=== PATIENT | male | born 1925 | race Caucasian/White ===

== ENCOUNTER 2017-01-05 10:05 | Inpatient (IN) | payer MEDICARE ==
[~2017-01-05] VITALS: Ht 160 cm; Wt 73.2 kg
[~2017-01-05 10:05] MED LIST: ASPI81 PO; METO25 PO; OXYB5TAB33 PO; OYST500T77 PO; SIMV80TA OR; TAB-TAB PO; TERA10CA3 PO; TIMO0.5S6 OU
[2017-01-05 10:09] VITALS: PULSE 80; RESP 18; TEMP 98.8; O2SAT 88
--- NOTE | 2017-01-05 10:34 | RADRPT ---
EXAM DATE/TIME: 01/05/2017 10:15 [facility] COMPARISON: No previous studies available for comparison. INDICATIONS : Short of breath MEDICAL HISTORY : Congestive heart failure. Carcinoma, colon. SURGICAL HISTORY : CABG. Colon resection. ENCOUNTER: Initial ACUITY: 1 day PAIN SCORE: 0/10 LOCATION: Bilateral chest FINDINGS: There is hazy bilateral pleuroparenchymal opacity with central vascular congestion. The there has bee n previous sternotomy. CONCLUSION: CHF Db Melchor MD on January 05, 2017 at 10:31 Board Certified Radiologist. This report was verified electronically.
[2017-01-05 10:38] LABS: AUTOMATED NEUTROPHIL # 5.3 TH/MM3 (1.8-7.7); BASOPHIL # 0.1 TH/MM3 (0-0.2); BASOPHIL % 1.2 % (0.0-2.0); EOSINOPHIL # 0.4 TH/MM3 (0-0.4); EOSINOPHIL % 5.3 % (0.0-4.0); HEMATOCRIT 29.9 % (39.0-51.0); HEMO FLAGS DIFF FINAL; LYMPH % 11.5 % (9.0-44.0); LYMPHOCYTE # 0.9 TH/MM3 (1.0-4.8); MEAN CELL VOLUME 95.7 FL (80.0-100.0); MEAN CORPUSCULAR HEMOGLOBIN 31.1 PG (27.0-34.0); MEAN CORPUSCULAR HGB CONC 32.5 % (32.0-36.0); MONO % 15.9 % (0.0-8.0); NEUT % 66.1 % (16.0-70.0); PLATELET COUNT 140 TH/MM3 (150-450); RED BLOOD COUNT 3.12 MIL/MM3 (4.50-5.90); RED CELL DISTRIBUTION WIDTH 18.4 % (11.6-17.2)
--- NOTE | 2017-01-05 10:42 | PD ---
HPI Chief Complaint: Respiratory Distress Time Seen by Provider: 10:14 Travel History International Travel<30 days: No Contact w/Intl Traveler<30days: No Traveled to known affect area: No History of Present Illness HPI 89-year-old male who presents by ambulance with not acting himself. He is acutely short of breath but he states he is otherwise like that. He does have swelling in his legs and states that that is about what he runs. The ambulance team states that his had said that he recently had a blood transfusion. History mainly obtained by ambulance team and patient denies significant complaints. PFS Past Medical History Narrative Medical By records Arthritis: Yes Asthma: No Atrial Fibrillation: Yes Autoimmune Disease: No Blood Disorders: No Cancer: Yes (COLON, PROSTATE) Cardiovascular Problems: Yes (CABG) High Cholesterol: Yes Chemotherapy: Yes COPD: No Diabetes: No Endocrine: No Genitourinary: Yes ( PROSTATE CA) Hepatitis: No Hiatal Hernia: No Hypertension: Yes Immune Disorder: No Implanted Vascular Access Dvce: Yes Musculoskeletal: Yes Neurologic: No Psychiatric: No Reproductive: No Respiratory: No Thyroid Disease: No Past Surgical History Narrative Surgical By records Abdominal Surgery: Yes (COLON RESECTION) Cardiac Surgery: Yes (CABG) Ear Surgery: No Endocrine Surgery: No Eye Surgery: Yes (PADMINI. CATARACT EXTRACT.) Genitourinary Surgery: No Gynecologic Surgery: No Joint Replacement: Yes (RIGHT KNEE) Oral Surgery: No Pacemaker: No Thoracic Surgery: No Other Surgery: Yes Social History Narrative Social History By records Alcohol Use: Yes (RARELY) Tobacco Use: No Substance Use: No Allergies-Medications (Allergen,Severity, Reaction): Coded Allergies: No Known Allergies (Verified , 07/01/11) Reported Meds & Prescriptions Reported Meds & Active Scripts Active Review of Systems Except as stated in HPI: all other systems reviewed are Neg Physical Exam Narrative GENERAL: Well-nourished, well-developed patient. SKIN: Warm and dry. HEAD: Normocephalic and atraumatic. EYES: No injection or drainage. ENT: No nasal drainage noted. NECK: Supple, trachea midline. CARDIOVASCULAR: Regular rate and rhythm RESPIRATORY: Crackles bilaterally at bases. No accessory muscle use. GASTROINTESTINAL: Abdomen soft, non-tender, nondistended. EXTREMITIES: Significant pedal edema bilaterally, right greater than left, neurovascularly intact NEUROLOGICAL: Awake. Moves all extremities. Normal speech. Data Data Last Documented VS Vital Signs Date Time Temp Pulse Resp B/P Pulse Ox O2 Delivery O2 Flow Rate FiO2 01/05/17 10:15 70 22 88 Room Air 01/05/17 10:09 98.8 Orders Magnesium (Mg) (01/05/17 10:14) Phosphorus (Po4) (01/05/17 10:14) Complete Blood Count With Diff (01/05/17 10:14) Comprehensive Metabolic Panel (01/05/17 10:14) Ckmb (Isoenzyme) Profile (01/05/17 10:14) Troponin I (01/05/17 10:14) Urinalysis - C+S If Indicated (01/05/17 10:14) Act Partial Throm Time (Ptt) (01/05/17 10:14) Prothrombin Time / Inr (Pt) (01/05/17 10:14) B-Type Natriuretic Peptide (01/05/17 10:14) Chest, Single Ap (01/05/17 ) Electrocardiogram (01/05/17 ) Iv Access Insert/Monitor (01/05/17 10:14) Ecg Monitoring (01/05/17 10:14) Type And Screen (01/05/17 10:14) Us Leg Venous Doppler Bilat (01/05/17 ) Furosemide Inj (Lasix Inj) (01/05/17 11:30) Red Blood Cells (Rbc) (01/05/17 10:23) Admit Order (Ed Use Only) (01/05/17 12:41) Labs Laboratory Tests Test 01/05/17 10:23 White Blood Count 8.0 TH/MM3 Red Blood Count 3.12 MIL/MM3 Hemoglobin 9.7 GM/DL Hematocrit 29.9 % Mean Corpuscular Volume 95.7 FL Mean Corpuscular Hemoglobin 31.1 PG Mean Corpuscular Hemoglobin 32.5 % Concent Red Cell Distribution Width 18.4 % Platelet Count 140 TH/MM3 Mean Platelet Volume 8.1 FL Neutrophils (%) (Auto) 66.1 % Lymphocytes (%) (Auto) 11.5 % Monocytes (%) (Auto) 15.9 % Eosinophils (%) (Auto) 5.3 % Basophils (%) (Auto) 1.2 % Neutrophils # (Auto) 5.3 TH/MM3 Lymphocytes # (Auto) 0.9 TH/MM3 Monocytes # (Auto) 1.3 TH/MM3 Eosinophils # (Auto) 0.4 TH/MM3 Basophils # (Auto) 0.1 TH/MM3 CBC Comment DIFF FINAL Differential Comment Prothrombin Time 26.6 SEC Prothromb Time International 2.3 RATIO Ratio Activated Partial 32.7 SEC Thromboplast Time Sodium Level 140 MEQ/L Potassium Level 4.4 MEQ/L Chloride Level 102 MEQ/L Carbon Dioxide Level 31.1 MEQ/L Anion Gap 7 MEQ/L Blood Urea Nitrogen 18 MG/DL Creatinine 1.15 MG/DL Estimat Glomerular Filtration 60 ML/MIN Rate Random Glucose 93 MG/DL Calcium Level 9.3 MG/DL Phosphorus Level 2.8 MG/DL Magnesium Level 2.1 MG/DL Total Bilirubin 1.7 MG/DL Aspartate Amino Transf 53 U/L (AST/SGOT) Alanine Aminotransferase 26 U/L (ALT/SGPT) Alkaline Phosphatase 159 U/L Total Creatine Kinase 69 U/L Troponin I 0.03 NG/ML B-Type Natriuretic Peptide 648 PG/ML Total Protein 6.5 GM/DL Albumin 3.5 GM/DL Blood Type O NEGATIVE Antibody Screen POSITIVE Crossmatch Leukocyte-Reduced Red Blood Cells Blood Bank Comment MDM Medical Decision Making Medical Screen Exam Complete: Yes Emergency Medical Condition: Yes Medical Record Reviewed: Yes (past history confirmed) Interpretation(s) CBC & BMP Diagram 01/05/17 10:23 Last 24 hours Impressions Lower Extremity Ultrasound 01/05/17 0000 Signed Impressions: Service Date/Time: December 10:27 - CONCLUSION: Normal examination. Db Melchor MD Chest X-Ray 01/05/17 0000 Signed Impressions: Service Date/Time: December 10:15 - CONCLUSION: CHF Db Melchor MD Differential Diagnosis CHF, renal failure, anemia, UTI Narrative Course Will check blood work, chest x-ray, EKG and reevaluate ed workup with chf exacerbation, will admit to hospital as requiring oxygen, now at bedside and both agree to plan, given lasix iv times 1 Physician Communication Physician Communication dr kwon agrees to admit Diagnosis Primary Impression: CHF exacerbation Qualified Code: I50.9 - Acute on chronic congestive heart failure, unspecified congestive heart failure type Izzy Lopez MD January 05, 2017 10:42
[2017-01-05 10:48] LABS: INTERNATIONAL NORMALIZED RATIO 2.3 RATIO; PROTHROMBIN TIME - PATIENT 26.6 SEC (9.8-11.6)
[2017-01-05 11:01] LABS: ALKALINE PHOSPHATASE 159 U/L (45-117); ALT (GPT) 26 U/L (12-78); ANION GAP 7 MEQ/L (5-15); APTT (PATIENT) 32.7 SEC (24.3-30.1); AST (GOT) 53 U/L (15-37); BICARBONATE 31.1 MEQ/L (21.0-32.0); BLOOD UREA NITROGEN 18 MG/DL (7-18); CHLORIDE 102 MEQ/L (98-107); GLOMERULAR FILTRATION RATE 60 ML/MIN (>89); MAGNESIUM 2.1 MG/DL (1.5-2.5); SODIUM (NA) 140 MEQ/L (136-145); TOTAL BILIRUBIN ADULT 1.7 MG/DL (0.2-1.0)
[2017-01-05 11:06] LABS: CREATINE KINASE 69 U/L (39-308); POTASSIUM 4.4 MEQ/L (3.5-5.1)
--- NOTE | 2017-01-05 11:24 | RADRPT ---
EXAM DATE/TIME: 01/05/2017 10:27 [facility] COMPARISON: No previous studies available for comparison. INDICATIONS : Bilateral leg edema. MEDICAL HISTORY : Hypercholesterolemia. Carcinoma, prostate. Carcinoma, colon. HTN. Arthritis. SURGICAL HISTORY : CABG Bilateral cataract extraction with lens implants. Colon resection. Right carpel tunnel release. Bilateral total knee replacement. Chemotherapy. Blood transfusions. ENCOUNTER: Initial ACUITY: 1 week PAIN SCORE: 0/10 LOCATION: Bilateral leg. TECHNIQUE: Venous ultrasound of the left and right leg was performed from the inguinal ligament to the proximal calf. Real-time, color Doppler and spectral tracing, compression and augmentation techniques were us ed. FINDINGS: RIGHT LEG: There is normal compressibility of the deep venous system from the inguinal region to the proximal ca lf. No echogenic clot is seen in the lumen of the common femoral, femoral, popliteal, and posterior tibial veins. There is a normal response of the venous system to proximal and distal augmentation an d respiration. LEFT LEG: There is normal compressibility of the deep venous system from the inguinal region to the proximal ca lf. No echogenic clot is seen in the lumen of the common femoral, femoral, popliteal, and posterior tibial veins. There is a normal response of the venous system to proximal and distal augmentation an d respiration. CONCLUSION: Normal examination. Db Melchor MD on January 05, 2017 at 11:23 Board Certified Radiologist. This report was verified electronically.
[2017-01-05] MEDS ORDERED: FUROSEMIDE 20 MG/2 ML VIAL IV PUSH ONE (11:30)
[2017-01-05] MEDS ORDERED: NALOXONE HCL 0.4 MG/ML AMP IV PRN (13:00)
[2017-01-05] MEDS ORDERED: SODIUM CHLORIDE 0.9% FLUSH 10 ML FLUSH IV FLUSH PRN (13:00)
[2017-01-05] MEDS ORDERED: ONDANSETRON HCL 4 MG/2 ML VIAL IVP PRN (13:00)
[2017-01-05] MEDS ORDERED: MAGNESIUM HYDROXIDE SUSP 30 ML CUP PO PRN (13:00)
[2017-01-05] MEDS ORDERED: TERA10CA3 PO (14:07)
[2017-01-05] MEDS ORDERED: TIMO0.5S5 EACH EYE (14:07)
[2017-01-05] MEDS ORDERED: OXYB15TA PO (14:07)
[2017-01-05] MEDS ORDERED: ASPI81TA81 PO (14:07)
[2017-01-05] MEDS ORDERED: BICA50TA PO (14:07)
[2017-01-05] MEDS ORDERED: FLUT1SPR5 EACH NARE (14:07)
[2017-01-05] MEDS ORDERED: MULT1TAB46 PO (14:07)
[2017-01-05] MEDS ORDERED: CALC1TAB12 PO (14:07)
[2017-01-05] MEDS ORDERED: WARF-58 PO (14:07)
[2017-01-05] MEDS ORDERED: SIMV80TA PO (14:07)
[2017-01-05] MEDS ORDERED: OCEA0.653 EACH NARE (14:08)
[2017-01-05 15:10] VITALS: BP 120/66; PULSE 73; RESP 20; O2SAT 100
--- NOTE | 2017-01-05 15:45 | HHI.HP ---
HPI [facility] Hospitalists Primary Care Physician Janki Whitfield MD Admission Diagnosis chf exacerbation Chief Complaint: SOB, LE edema Travel History International Travel<30 Days: No Contact w/Intl Traveler <30 Da: No Traveled to Known Affected Are: No History of Present Illness Mr. Lopez is a pleasant 89 y/o WM with atrial fibrillation on chronic anticoagulation with Coumadin, chronic anemia, hx of prostate cancer and hx of large cell lymphoma in 2004. Pt was brought to the ED on 01/05/17 with worsening LE edema and reported SOB. Pt is somewhat of a poor historian and it is difficult to obtain information from him. Pts was reportedly concerned about his increasing LE edema. Pt had recently received a blood transfusion as his Hgb/Hct on 12/26/16 as an outpt was notably decreased to 7.9/25.3. Following the blood transfusion on 12/30 his H/H has increased to 9.4/29.4 which is about his baseline. He has had increased SOB and LE edema since his transfusion. Workup in the ED revealed BNP 648, pt was hypoxic on RA at 88% which improved with supplemental O2. CXR revealed findings consistent with CHF. LE US was negative for DVT. Pt was given Lasix 20mg IV in the ED. Review of Systems Constitutional: DENIES: Fever, Chills Respiratory: COMPLAINS OF: Shortness of breath, DENIES: Cough Cardiovascular: COMPLAINS OF: Lower Extremity Edema, DENIES: Chest pain Gastrointestinal: DENIES: Abdominal pain, Nausea, Vomiting Genitourinary: DENIES: Urgency, Hematuria Integumentary: DENIES: Rash Neurologic: DENIES: Headache Psychiatric: COMPLAINS OF: Confusion Past Family Social History Past Medical History A. 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 s/p 3 cycles of CHOP/Rituxan in 2D echo (10/20/14) - EF 55% - No evidence of diastolic dysfunction - LA mildly dilated - Trace aortic regurgitation - Mild mitral regurgitation Past Surgical History CABG x 3 Bilateral cataract surgery Right trigger finger release Right partial colectomy in 2004 Prostate surgery Bilateral total knee arthroplasty (right in 2007, left in 2008) Reported Medications [place] Nasal [place] (Sodium Chloride) 0.65% [place] 1-2 [place] EACH NARE DIRECTED PRN Multi Vitamin Daily (Multiple Vitamin) 1 Tab Tab 1 Tab PO DAILY Oxybutynin ER 24 HR (Oxybutynin Chloride) 15 Mg Tab 15 Mg PO BID Terazosin 10 Mg PO HS Calcium 500-400 Mg-Unit Tab 1 Tab PO BID Aspir-81 81 Mg PO DAILY Timoptic Opth Drops 0.5 % Soln 1 Drop EACH EYE DAILY Flonase Nasal [place] 50 Mcg/Act [place] 2 [place] EACH NARE HS PRN Simvastatin 80 Mg PO HS Bicalutamide 50 Mg PO DAILY Warfarin 3 Mg PO HS Allergies: Coded Allergies: No Known Allergies (Verified , 07/01/11) Family History Noncontributory Social History No reported alcohol, tobacco or illicit drug use Physical Exam Vital Signs Vital Signs Date Time Temp Pulse Resp B/P Pulse Ox O2 Delivery O2 Flow Rate FiO2 01/05/17 15:10 73 20 120/66 100 2 01/05/17 10:15 70 22 88 Room Air 01/05/17 10:09 98.8 80 18 88 Physical Exam GENERAL: This is a well-nourished, well-developed patient, in no apparent distress. HEENT: Atraumatic. Normocephalic. No temporal or scalp tenderness. No scleral icterus. Airway patent. NECK: Trachea midline, supple, nontender. CARDIO: Irregular. RESP: Crackles at the bases. ABD: +BS, soft, non-tender, nondistended. EXT: Bilateral LE pitting edema, 1-2+. NEURO: Awake and alert. Motor and sensory grossly within normal limits. Normal speech. Laboratory Laboratory Tests Test 01/05/17 10:23 White Blood Count 8.0 Red Blood Count 3.12 Hemoglobin 9.7 Hematocrit 29.9 Mean Corpuscular Volume 95.7 Mean Corpuscular Hemoglobin 31.1 Mean Corpuscular Hemoglobin 32.5 Concent Red Cell Distribution Width 18.4 Platelet Count 140 Mean Platelet Volume 8.1 Neutrophils (%) (Auto) 66.1 Lymphocytes (%) (Auto) 11.5 Monocytes (%) (Auto) 15.9 Eosinophils (%) (Auto) 5.3 Basophils (%) (Auto) 1.2 Neutrophils # (Auto) 5.3 Lymphocytes # (Auto) 0.9 Monocytes # (Auto) 1.3 Eosinophils # (Auto) 0.4 Basophils # (Auto) 0.1 CBC Comment DIFF FINAL Differential Comment Prothrombin Time 26.6 Prothromb Time International 2.3 Ratio Activated Partial 32.7 Thromboplast Time Sodium Level 140 Potassium Level 4.4 Chloride Level 102 Carbon Dioxide Level 31.1 Anion Gap 7 Blood Urea Nitrogen 18 Creatinine 1.15 Estimat Glomerular Filtration 60 Rate Random Glucose 93 Calcium Level 9.3 Phosphorus Level 2.8 Magnesium Level 2.1 Total Bilirubin 1.7 Aspartate Amino Transf 53 (AST/SGOT) Alanine Aminotransferase 26 (ALT/SGPT) Alkaline Phosphatase 159 Total Creatine Kinase 69 Troponin I 0.03 B-Type Natriuretic Peptide 648 Total Protein 6.5 Albumin 3.5 Blood Type O NEGATIVE Antibody Screen POSITIVE Crossmatch Leukocyte-Reduced Red Blood Cells Blood Bank Comment Result Diagram: 01/05/17 1023 01/05/17 1023 Imaging Last Impressions Lower Extremity Ultrasound 01/05/17 0000 Signed Impressions: Service Date/Time: December 10:27 - CONCLUSION: Normal examination. Db Melchor MD Chest X-Ray 01/05/17 0000 Signed Impressions: Service Date/Time: December 10:15 - CONCLUSION: CHF Db Melchor MD Septic Shock Reassessment Heart: Irregular Lungs: Crackles Skin: Warm Assessment and Plan Problem List: (1) CHF exacerbation Status: Acute Plan: - Pt admitted with complaints of worsening SOB and LE edema. - Pt had recently received a blood transfusion as his Hgb/Hct on 12/26/16 as an outpt was notably decreased to 7.9/25.3. - Following the blood transfusion on 12/30 his H/H has increased to 9.4/29.4 which is about his baseline. - He has had increased SOB and LE edema since his transfusion. - Workup in the ED revealed BNP 648, pt was hypoxic on RA at 88% which improved with supplemental O2. - CXR revealed findings consistent with CHF. - LE US was negative for DVT. - Pt was given Lasix 20mg IV in the ED. - We will continue with gentle diuresis with Lasix 20mg IV BID and KCL 20meq daily - Monitor labs closely - 2D echo - telemetry - Repeat CXR in AM - Supportive care - Monitor vitals closely (2) Atrial fibrillation Status: Chronic Plan: - Pt is not on any rate controlling medications at home. - Cont. ASA - Rate controlled on telemetry (3) Chronic anemia Status: Chronic Plan: - As above. - Labs are stable currently. - Monitor Assessment and Plan Patient examined. Assessment and plan formulated with Arabella Post PA-C. I agree with the above. Problem Qualifiers (1) CHF exacerbation: Qualified Code: I50.9 - Acute on chronic congestive heart failure, unspecified congestive heart failure type Arabella Post January 05, 2017 15:45 Angel Collins DO January 06, 2017 16:32
[2017-01-05 16:10] VITALS: BP 154/71; PULSE 86; RESP 22; TEMP 98.5; O2SAT 100
--- NOTE | 2017-01-05 16:33 | EKG ---
Date Performed: 01/05/2017 Time Performed: 10:20:04 PTAGE: 89 years EKG: ATRIAL FIBRILLATION LEFT BUNDLE BRANCH BLOCK ABNORMAL ECG PREVIOUS TRACING : 07/01/2011 08.57 Compared to the previous tracing, LBBB and Afib are new DOCTOR: Paul Craver Interpretating Date/Time 01/05/2017 16:32:46
[2017-01-05] MEDS ORDERED: WARFARIN SOD 3 MG TAB PO SCH (17:15)
[2017-01-05 17:26] LABS: BLOOD, URINE SMALL (NEG); COMMENT (UR) CULT NOT INDICATED; CULTURE IF INDICATED CULT NOT INDICATED; GLUCOSE,URINE NEG (NEG); KETONE, URINE NEG (NEG); MUCUS URINE FEW /lpf (OCC); NITRITE,URINE NEG (NEG); URINE COLOR YELLOW (YELLW/STRAW)
[2017-01-05] MEDS: POTASSIUM CHLORIDE 20 MEQ CONTROLLED RELEASE TAB PO SCH (18:10)
[2017-01-05] MEDS: FUROSEMIDE 20 MG/2 ML VIAL IV PUSH SCH (18:17)
[2017-01-05] MEDS: TIMOLOL MALEATE 0.5% OPHT SOLN 5 ML BTL EACH EYE SCH (18:20)
[2017-01-05 19:54] VITALS: BP 117/62; PULSE 68; RESP 20; TEMP 97.8; O2SAT 99
[2017-01-05 20:53] VITALS: O2SAT 94
[2017-01-05] MEDS: SODIUM CHLORIDE 0.9% FLUSH 10 ML FLUSH IV FLUSH SCH (20:56)
[2017-01-05] MEDS: PRAVASTATIN SOD 80 MG TAB PO SCH (20:56)
[2017-01-05] MEDS: TERAZOSIN HCL 5 MG CAP PO SCH (20:56)
[2017-01-05] MEDS: OXYBUTYNIN CHLORIDE 5 MG TAB PO SCH (20:56)
[2017-01-06] VITALS (10 sets, daily range): BP systolic 96–157; BP diastolic 54–86; PULSE 58–87; RESP 18–24; TEMP 97.8–98.9; O2SAT 93–100
[2017-01-06] MEDS: ASPIRIN EC 81 MG TABEC PO SCH (08:43)
[2017-01-06] MEDS: FUROSEMIDE 20 MG/2 ML VIAL IV PUSH SCH (08:43)
[2017-01-06] MEDS: SODIUM CHLORIDE 0.9% FLUSH 10 ML FLUSH IV FLUSH SCH ×2 (08:43→21:38)
[2017-01-06] MEDS: POTASSIUM CHLORIDE 20 MEQ CONTROLLED RELEASE TAB PO SCH (08:43)
[2017-01-06] MEDS: OXYBUTYNIN CHLORIDE 5 MG TAB PO SCH ×2 (08:44→21:38)
[2017-01-06] MEDS: TIMOLOL MALEATE 0.5% OPHT SOLN 5 ML BTL EACH EYE SCH (08:44)
--- NOTE | 2017-01-06 09:29 | RADRPT ---
EXAM DATE/TIME: 01/06/2017 09:03 [facility] COMPARISON: CHEST SINGLE AP, January 05, 2017, 10:15. INDICATIONS : Short of breath. Volume overload. MEDICAL HISTORY : Hypercholesterolemia. Carcinoma, prostate. Carcinoma, colon. HTN. Arthritis. SURGICAL HISTORY : CABG Bilateral cataract extraction with lens implants. Colon resection.Right carpel tunnel release. B ilateral total knee replacement. Chemotherapy. Blood transfusions. ENCOUNTER: Initial ACUITY: 2 days PAIN SCORE: 0/10 LOCATION: chest FINDINGS: PA and lateral views of the chest demonstrate a bilateral mostly basilar airspace consolidation with small effusions. Postoperative CABG. CONCLUSION: 1. Relatively stable appearance of bilateral basilar airspace disease and effusions. Findings most ch aracteristic of mild congestive heart failure. Carlos Benedict MD on January 06, 2017 at 9:26 Board Certified Radiologist. This report was verified electronically.
[2017-01-06 10:31] LABS: AUTOMATED NEUTROPHIL # 5.8 TH/MM3 (1.8-7.7); BASOPHIL # 0.1 TH/MM3 (0-0.2); BASOPHIL % 1.4 % (0.0-2.0); EOSINOPHIL # 0.4 TH/MM3 (0-0.4); EOSINOPHIL % 5.2 % (0.0-4.0); HEMATOCRIT 29.8 % (39.0-51.0); HEMO FLAGS DIFF FINAL; LYMPH % 8.5 % (9.0-44.0); LYMPHOCYTE # 0.7 TH/MM3 (1.0-4.8); MEAN CELL VOLUME 96.1 FL (80.0-100.0); MEAN CORPUSCULAR HEMOGLOBIN 31.2 PG (27.0-34.0); MEAN CORPUSCULAR HGB CONC 32.5 % (32.0-36.0); MONO % 14.9 % (0.0-8.0); PLATELET COUNT 148 TH/MM3 (150-450); RED CELL DISTRIBUTION WIDTH 17.9 % (11.6-17.2); WHITE BLOOD COUNT 8.3 TH/MM3 (4.0-11.0)
[2017-01-06 10:37] LABS: INTERNATIONAL NORMALIZED RATIO 3.2 RATIO; PROTHROMBIN TIME - PATIENT 36.8 SEC (9.8-11.6)
[2017-01-06 10:55] LABS: BICARBONATE 36.3 MEQ/L (21.0-32.0); POTASSIUM 3.8 MEQ/L (3.5-5.1)
--- NOTE | 2017-01-06 11:40 | EC ---
Study Study Date:01/06/2017 STUDY CONCLUSIONS SUMMARY - Procedure narrative: Transthoracic echocardiography. Image quality was fair. Scanning was performed from the parasternal, apical, and subcostal acoustic windows. - Left ventricle: The cavity size was normal. Wall thickness was normal. Systolic function was low normal. The estimated ejection fraction was 50%. Possible moderate basal inferior and basal posterior hypokinesis. - Aortic valve: Trileaflet; mildly thickened leaflets. Trace regurgitation. - Mitral valve: Moderately calcified annulus. Moderate regurgitation. - Left atrium: The atrium was mildly dilated. - Right atrium: The atrium was mildly dilated. - Tricuspid valve: Mild-moderate regurgitation. If LV function is below 40, please consider prescribing an ACEI or ARB or document rationale for non-use. PROCEDURE DATA STUDY STATUS: Elective. Procedure: Transthoracic echocardiography. Image quality was fair. Scanning was performed from the parasternal, apical, and subcostal acoustic windows. Study completion: The patient tolerated the procedure well. Transthoracic echocardiography. M-mode, complete 2D, complete spectral Doppler, and color Doppler. Patient status: Inpatient. CARDIAC ANATOMY LEFT VENTRICLE: The cavity size was normal. Wall thickness was normal. Systolic function was low normal. The estimated ejection fraction was 50%. Possible moderate basal inferior and basal posterior hypokinesis. AORTIC VALVE: Trileaflet; mildly thickened leaflets. Doppler: Transvalvular velocity was within the normal range. There was no stenosis. Trace regurgitation. Peak gradient: 12mm Hg (S). AORTA: Aortic root: The aortic root was normal in size. MITRAL VALVE: Moderately calcified annulus. Doppler: Transvalvular velocity was within the normal range. There was no evidence for stenosis. Moderate regurgitation. Valve area by pressure half-time: 2.29cm^2. Mean gradient: 3mm Hg (D). Peak gradient: 10mm Hg (D). LEFT ATRIUM: The atrium was mildly dilated. RIGHT VENTRICLE: The cavity size was normal. Wall thickness was normal. PULMONIC VALVE: Doppler: Transvalvular velocity was within the normal range. There was no evidence for stenosis. No regurgitation. TRICUSPID VALVE: Structurally normal valve. Doppler: Transvalvular velocity was within the normal range. Mild-moderate regurgitation. PULMONARY ARTERY: The main pulmonary artery was normal-sized. Systolic pressure was within the normal range. RIGHT ATRIUM: The atrium was mildly dilated. PERICARDIUM: There was no pericardial effusion. SYSTEMIC VEINS: Inferior vena cava: The vessel was normal in size. BASIC MEASUREMENTS ADULT Normal Left ventricle LV internal dimension, ED, chordal level, 46.1 mm 43-52 PLAX LV internal dimension, ES, chordal level, *39.2 mm 23-38 PLAX Fractional shortening, chordal level, PLAX *15 % >29 LV posterior wall thickness, ED 6.89 mm IVS/LVPW ratio, ED *1.48 <1.3 Ventricular septum Septal thickness, ED 10.2 mm Aortic valve Leaflet separation 18 mm 15-26 Left atrium Anterior-posterior dimension 37 mm BASIC MEASUREMENTS ADULT Normal Aortic valve Leaflet separation 18 mm 15-26 Aorta Root diameter, ED 31 mm 20-37 DOPPLER MEASUREMENTS ADULT Normal Aortic valve Peak velocity, S 172 cm/s VTI, S 48.6 cm Peak gradient, S 12 mm Hg Mitral valve Peak E-wave velocity 78.5 cm/s Peak A-wave velocity 34.1 cm/s Mean velocity, D 75.3 cm/s Pressure half-time 96 ms Mean gradient, D 3 mm Hg Peak gradient, D 10 mm Hg Peak E/A ratio 2.3 Valve area, pressure half-time 2.29 cm^2 Maximal regurgitant velocity 536 cm/s Tricuspid valve Regurgitant peak velocity 354 cm/s Peak RV-RA gradient, S 50 mm Hg Maximal regurgitant velocity 354 cm/s LEGEND: Mean values are shown as u=mean value. Asterisk (*) beard values outside specified normal range. Prepared and signed by Reji العلي [id number]
--- NOTE | 2017-01-06 15:10 | HHI.PR ---
Subjective Remarks Pt still feeling SOB and is on 4L via NC Pts telemetry revealed bradycardia into the low 40's/high 30's last night and today Pt is not on any rate controlling medications. Objective Vitals Vital Signs Date Time Temp Pulse Resp B/P Pulse Ox O2 Delivery O2 Flow Rate FiO2 01/06/17 12:32 97.8 60 18 157/86 100 01/06/17 12:30 98.0 74 18 135/60 98 01/06/17 08:41 Nasal Cannula 4.00 01/06/17 08:31 98.9 73 20 127/56 01/06/17 08:00 67 01/06/17 04:09 98.1 62 18 96/54 98 01/06/17 00:14 98.0 77 18 117/59 94 01/05/17 20:53 94 Nasal Cannula 3.00 01/05/17 19:54 97.8 68 20 117/62 99 01/05/17 16:11 Nasal Cannula 2.00 01/05/17 16:10 98.5 86 22 154/71 100 01/05/17 15:10 73 20 120/66 100 2 01/05/17 01/05/17 01/06/17 15:00 23:00 07:00 Intake Total 300 ml Output Total 400 ml Balance -100 ml Intake Oral 300 ml Output Urine Total 400 ml # Voids 3 # Bowel Movements 0 Result Diagram: 01/06/17 1006 01/06/17 1006 Other Results Laboratory Tests Test 01/05/17 01/05/17 01/06/17 10:23 17:15 10:06 White Blood Count 8.0 TH/MM3 8.3 TH/MM3 Red Blood Count 3.12 MIL/MM3 3.10 MIL/MM3 Hemoglobin 9.7 GM/DL 9.7 GM/DL Hematocrit 29.9 % 29.8 % Mean Corpuscular Volume 95.7 FL 96.1 FL Mean Corpuscular Hemoglobin 31.1 PG 31.2 PG Mean Corpuscular Hemoglobin 32.5 % 32.5 % Concent Red Cell Distribution Width 18.4 % 17.9 % Platelet Count 140 TH/MM3 148 TH/MM3 Mean Platelet Volume 8.1 FL 8.1 FL Neutrophils (%) (Auto) 66.1 % 70.0 % Lymphocytes (%) (Auto) 11.5 % 8.5 % Monocytes (%) (Auto) 15.9 % 14.9 % Eosinophils (%) (Auto) 5.3 % 5.2 % Basophils (%) (Auto) 1.2 % 1.4 % Neutrophils # (Auto) 5.3 TH/MM3 5.8 TH/MM3 Lymphocytes # (Auto) 0.9 TH/MM3 0.7 TH/MM3 Monocytes # (Auto) 1.3 TH/MM3 1.2 TH/MM3 Eosinophils # (Auto) 0.4 TH/MM3 0.4 TH/MM3 Basophils # (Auto) 0.1 TH/MM3 0.1 TH/MM3 CBC Comment DIFF FINAL DIFF FINAL Differential Comment Prothrombin Time 26.6 SEC 36.8 SEC Prothromb Time International 2.3 RATIO 3.2 RATIO Ratio Activated Partial 32.7 SEC Thromboplast Time Sodium Level 140 MEQ/L 141 MEQ/L Potassium Level 4.4 MEQ/L 3.8 MEQ/L Chloride Level 102 MEQ/L 99 MEQ/L Carbon Dioxide Level 31.1 MEQ/L 36.3 MEQ/L Anion Gap 7 MEQ/L 6 MEQ/L Blood Urea Nitrogen 18 MG/DL 17 MG/DL Creatinine 1.15 MG/DL 1.16 MG/DL Estimat Glomerular Filtration 60 ML/MIN 59 ML/MIN Rate Random Glucose 93 MG/DL 93 MG/DL Calcium Level 9.3 MG/DL 9.3 MG/DL Phosphorus Level 2.8 MG/DL Magnesium Level 2.1 MG/DL Total Bilirubin 1.7 MG/DL Aspartate Amino Transf 53 U/L (AST/SGOT) Alanine Aminotransferase 26 U/L (ALT/SGPT) Alkaline Phosphatase 159 U/L Total Creatine Kinase 69 U/L Troponin I 0.03 NG/ML B-Type Natriuretic Peptide 648 PG/ML 612 PG/ML Total Protein 6.5 GM/DL Albumin 3.5 GM/DL Blood Type O NEGATIVE Antibody Screen POSITIVE Crossmatch Leukocyte-Reduced Red Blood Cells Blood Bank Comment Urine Color YELLOW Urine Turbidity CLEAR Urine pH 6.0 Urine Specific [place] 1.009 Urine Protein NEG mg/dL Urine Glucose (UA) NEG mg/dL Urine Ketones NEG mg/dL Urine Occult Blood SMALL Urine Nitrite NEG Urine Bilirubin NEG Urine Urobilinogen LESS THAN 2.0 MG/DL Urine Leukocyte Esterase NEG Urine RBC 7 /hpf Urine WBC 1 /hpf Urine Mucus FEW /lpf Microscopic Urinalysis Comment CULT NOT INDICATED Imaging Last Impressions Lower Extremity Ultrasound 01/05/17 0000 Signed Impressions: Service Date/Time: December 10:27 - CONCLUSION: Normal examination. Db Melchor MD Chest X-Ray 01/05/17 0000 Signed Impressions: Service Date/Time: December 10:15 - CONCLUSION: CHF Db Melchor MD Objective Remarks General: NAD, AAOx3 Chest: Decreased air movement and wheezing bilaterally Cardiac: Irregular Abd: +BS, soft ND/NT Ext: Bilateral LE pitting edema to the knees A/P Problem List: (1) CHF exacerbation Status: Acute Plan: - Pt admitted with complaints of worsening SOB and LE edema. - Pt had recently received a blood transfusion as his Hgb/Hct on 12/26/16 as an outpt was notably decreased to 7.9/25.3. - Following the blood transfusion on 12/30 his H/H has increased to 9.4/29.4 which is about his baseline. - He has had increased SOB and LE edema since his transfusion. - Workup in the ED revealed BNP 648, pt was hypoxic on RA at 88% which improved with supplemental O2. - CXR revealed findings consistent with CHF. - LE US was negative for DVT. - Pt was given Lasix 20mg IV in the ED. - He was continued on Lasix 20mg IV BID and KCL 20meq daily but will increase to Lasix 40mg IV BID this evening as pt still symptomatic and CXR on 01/06/17 is unchanged. - 2D echo (01/05) --> estimated EF 50%, possible moderate basal inferior and basal posterior hypokinesis, trace aortic regurgitation, moderate mitral regurgitation, LA mildly dilated , RA mildly dilated, mild- moderate tricuspid regurgitation. - Telemetry with A. vida with maico in the 40's during the day and nurse reports into the 30's when he's sleeping. Pt is not on any BB - Check TSH/free T4 - Repeat CXR in AM - Holter Monitor - Repeat labs in AM - Duonebs - Supportive care - Monitor vitals closely (2) Atrial fibrillation Status: Chronic Plan: - Pt is not on any rate controlling medications at home. - Cont. ASA - Hold Coumadin today as INR is 3.2 - Telemetry (3) Chronic anemia Status: Chronic Plan: - As above. - Labs are stable currently. - Monitor Assessment and Plan Patient examined. Assessment and plan formulated with Arabella Post PA-C. I agree with the above. Problem Qualifiers (1) CHF exacerbation: Qualified Code: I50.9 - Acute on chronic congestive heart failure, unspecified congestive heart failure type Arabella Post January 06, 2017 15:09 Angel Collins DO January 06, 2017 16:32
[2017-01-06] MEDS ORDERED: RESP: ALBUTEROL 2.5 MG/IPRATROPIUM 0.5 MG NEB (PRN) NEB (15:30)
[2017-01-06] MEDS: RESP: ALBUTEROL 2.5 MG/IPRATROPIUM 0.5 MG NEB (SCH) NEB (15:35)
[2017-01-06] MEDS: FUROSEMIDE 40 MG/4 ML VIAL IV PUSH SCH ×2 (15:39→17:41)
[2017-01-06 16:16] LABS: FREE T4 1.43 NG/DL (0.76-1.46)
[2017-01-06] MEDS: TERAZOSIN HCL 5 MG CAP PO SCH (21:38)
[2017-01-06] MEDS: PRAVASTATIN SOD 80 MG TAB PO SCH (21:38)
[2017-01-07] VITALS (10 sets, daily range): BP systolic 91–129; BP diastolic 50–95; PULSE 66–89; RESP 18–20; TEMP 97.3–98.5; O2SAT 91–99
[2017-01-07] MEDS: RESP: ALBUTEROL 2.5 MG/IPRATROPIUM 0.5 MG NEB (SCH) NEB ×4 (07:44→23:56)
[2017-01-07 08:30] LABS: AUTOMATED NEUTROPHIL # 5.4 TH/MM3 (1.8-7.7); BASOPHIL # 0.1 TH/MM3 (0-0.2); BASOPHIL % 0.9 % (0.0-2.0); EOSINOPHIL # 0.5 TH/MM3 (0-0.4); HEMATOCRIT 29.3 % (39.0-51.0); HEMO FLAGS DIFF FINAL; LYMPH % 11.8 % (9.0-44.0); MEAN CELL VOLUME 95.9 FL (80.0-100.0); MEAN CORPUSCULAR HEMOGLOBIN 31.5 PG (27.0-34.0); MEAN CORPUSCULAR HGB CONC 32.8 % (32.0-36.0); MONO % 16.2 % (0.0-8.0); NEUT % 65.1 % (16.0-70.0); PLATELET COUNT 146 TH/MM3 (150-450); RED BLOOD COUNT 3.05 MIL/MM3 (4.50-5.90); RED CELL DISTRIBUTION WIDTH 17.9 % (11.6-17.2); WHITE BLOOD COUNT 8.2 TH/MM3 (4.0-11.0)
[2017-01-07] MEDS: FUROSEMIDE 40 MG/4 ML VIAL IV PUSH SCH (08:31)
[2017-01-07] MEDS: POTASSIUM CHLORIDE 20 MEQ CONTROLLED RELEASE TAB PO SCH (08:31)
[2017-01-07] MEDS: ASPIRIN EC 81 MG TABEC PO SCH (08:32)
[2017-01-07] MEDS: SODIUM CHLORIDE 0.9% FLUSH 10 ML FLUSH IV FLUSH SCH ×2 (08:32→20:51)
[2017-01-07] MEDS: TIMOLOL MALEATE 0.5% OPHT SOLN 5 ML BTL EACH EYE SCH (08:32)
[2017-01-07] MEDS: OXYBUTYNIN CHLORIDE 5 MG TAB PO SCH ×2 (08:32→20:51)
[2017-01-07 08:36] LABS: INTERNATIONAL NORMALIZED RATIO 3.7 RATIO; PROTHROMBIN TIME - PATIENT 43.7 SEC (9.8-11.6)
[2017-01-07 09:00] LABS: BICARBONATE 37.6 MEQ/L (21.0-32.0); MAGNESIUM 2.1 MG/DL (1.5-2.5); POTASSIUM 3.3 MEQ/L (3.5-5.1)
--- NOTE | 2017-01-07 09:52 | RADRPT ---
EXAM DATE/TIME: 01/07/2017 09:23 [facility] COMPARISON: CHEST PA & LAT, January 06, 2017, 9:03. INDICATIONS : Short of Breath MEDICAL HISTORY : Hypercholesterolemia. Carcinoma, prostate. Carcinoma, colon. HTN. Arthritis SURGICAL HISTORY : CABG Bilateral cataract extraction with lens implants. Colon resection. Right carpel tunnel release. Bilateral total knee replacement. Chemotherapy. Blood transfusions. ENCOUNTER: Subsequent ACUITY: 2 days PAIN SCORE: 0/10 LOCATION: Bilateral chest FINDINGS: AP and lateral views of the chest demonstrate a normal-sized cardiac silhouette in this patient post median sternotomy and CABG. Lungs are underinflated and there are perihilar and lower lungs interstit ial opacities. The there are bilateral pleural effusions. No pneumothorax is visualized. CONCLUSION: Stable chest x-ray with small bilateral pleural effusions with interstitial and air space opacities i n the mid and lower lung zones bilaterally. Db Werner MD on January 07, 2017 at 9:49 Board Certified Radiologist. This report was verified electronically.
--- NOTE | 2017-01-07 17:12 | HHI.PR ---
Subjective Remarks No new complaints. Objective Vitals Vital Signs Date Time Temp Pulse Resp B/P Pulse Ox O2 Delivery O2 Flow Rate FiO2 01/07/17 16:06 98.3 89 18 108/58 96 01/07/17 16:00 Nasal Cannula 3.00 01/07/17 12:00 Nasal Cannula 3.00 01/07/17 12:00 98.3 78 20 129/95 93 01/07/17 08:29 98.4 78 19 123/59 91 01/07/17 08:10 Nasal Cannula 3.00 01/07/17 08:10 67 01/07/17 07:45 93 Nasal Cannula 3.00 01/07/17 04:00 Nasal Cannula 3.00 01/07/17 04:00 97.3 69 20 91/50 96 01/07/17 00:42 99 Nasal Cannula 3.00 01/07/17 00:00 Nasal Cannula 3.00 01/07/17 00:00 98.4 66 20 118/64 99 01/06/17 20:30 98.3 87 24 123/59 99 01/06/17 20:00 Nasal Cannula 3.00 01/06/17 20:00 58 01/06/17 18:15 98.5 70 22 145/64 93 01/06/17 01/06/17 01/07/17 15:00 23:00 07:00 Intake Total 240 ml 240 ml Output Total 400 ml Balance -400 ml 240 ml 240 ml Intake Oral 240 ml 240 ml Output Urine Total 400 ml # Voids 3 2 2 # Bowel Movements 0 0 0 Result Diagram: 01/07/17 0708 01/07/17 0708 Imaging Last Impressions Lower Extremity Ultrasound 01/05/17 0000 Signed Impressions: Service Date/Time: December 10:27 - CONCLUSION: Normal examination. Db Melchor MD Chest X-Ray 01/05/17 0000 Signed Impressions: Service Date/Time: December 10:15 - CONCLUSION: CHF Db Melchor MD Objective Remarks General: NAD, AAOx3 HEENT: oral mucous membranes somewhat dry Chest: improved air movement from admission Cardiac: Irregular Abd: +BS, soft ND/NT Ext: no c/c/e A/P Problem List: (1) CHF exacerbation Status: Acute Plan: - Pt admitted with complaints of worsening SOB and LE edema. - Pt had recently received a blood transfusion as his Hgb/Hct on 12/26/16 as an outpt was notably decreased to 7.9/25.3. - Following the blood transfusion on 12/30 his H/H has increased to 9.4/29.4 which is about his baseline. - He has had increased SOB and LE edema since his transfusion. - Workup in the ED revealed BNP 648, pt was hypoxic on RA at 88% which improved with supplemental O2. - CXR revealed findings consistent with CHF. - LE US was negative for DVT. - Pt was given Lasix 20mg IV in the ED, then 40mg IV BID - CXR (01/07/17) --> CHF - 2D echo (01/05) --> estimated EF 50%, possible moderate basal inferior and basal posterior hypokinesis, trace aortic regurgitation, moderate mitral regurgitation, LA mildly dilated , RA mildly dilated, mild- moderate tricuspid regurgitation. - Telemetry with A. vida with maico in the 40's during the day and nurse reports into the 30's when he's sleeping. Pt is not on any BB - Holter Monitor --> pending RE: bradycardia - clinically pt seems improved. Hesitant to diuresis pt too aggressively given advanced age - change lasix to 40mg daily - Repeat labs in AM - Duonebs - Supportive care - Monitor vitals closely - anticipate d/c to SNF in 1-2 days (2) Atrial fibrillation Status: Chronic Plan: - Pt is not on any rate controlling medications at home. - Cont. ASA - Hold Coumadin today as INR is 3.2 - Telemetry (3) Chronic anemia Status: Chronic Plan: - As above. - Labs are stable currently. - Monitor Problem Qualifiers (1) CHF exacerbation: Qualified Code: I50.9 - Acute on chronic congestive heart failure, unspecified congestive heart failure type Angel Collins DO January 07, 2017 17:12
[2017-01-07] MEDS ORDERED: FUROSEMIDE 40 MG/4 ML VIAL IV PUSH SCH (18:00)
[2017-01-07] MEDS ORDERED: FUROSEMIDE 40 MG TAB PO SCH (18:00)
[2017-01-07] MEDS: PRAVASTATIN SOD 80 MG TAB PO SCH (20:51)
[2017-01-07] MEDS: TERAZOSIN HCL 5 MG CAP PO SCH (20:51)
[2017-01-08] VITALS (10 sets, daily range): BP systolic 100–168; BP diastolic 52–69; PULSE 63–101; RESP 18–26; TEMP 98–99.8; O2SAT 92–100
--- NOTE | 2017-01-08 02:57 | HHI.PR ---
Addendum to Inpatient Note Addendum Reason: Additional Documentation Additional Information [facility] NOTE Patient is an 89 year old male with a history of chronic anticoagulation on coumadin, inpatient for CHF exacerbatin, known to Dr. Collins ([facility]), for whom a [facility] is called due to worsened mentation and hypoxia to 80s%. At bedside, patient is notably confused and agitated, moving around and not answering questions. Cardiac exam showing tachycardia, no murmurs Lung exam: clear to auscultation, on simple mask 100% at 7L Abdomen: large ventral hernia Extremities: pulses 2+, no edema noted Assessment: I spoke with Dr. Collins who knows the patient. He has requested that patient receive a one-time bolus of cardizem 10mg IV x 1, continue telemetry. He would like cardizem gtt initiated for sustained atrial tachycardia. These items have been ordered. Plan: as above, in addition to ABG, EKG ordered per [facility] team, to be followed up by primary team Ericka Roberts MD R1 January 08, 2017 02:57
[2017-01-08] MEDS ORDERED: DILTIAZEM HCL 25 MG/5 ML VIAL IV ONE (03:00)
[2017-01-08 03:02] LABS: BLOOD GAS CARBOXYHEMOGLOBIN 2.4 % (0-4); BLOOD GAS HCO3 34 mmol/L (22-26); BLOOD GAS METHEMOGLOBIN 0.7 % (0-2); BLOOD GAS O2 HGB SATURATION 96 % (90-100); BLOOD GAS OXYGEN CONTENT 13.9 Vol % (12.0-20.0); BLOOD GAS PCO2 43 mmHg (38-42); BLOOD GAS PO2 122 mmHg (61-120); BLOOD GAS TOTAL HGB 10.1 G/DL (12.0-16.0); TEMP CORR TO 98.6
[2017-01-08 03:05] LABS: CRITICAL VALUE YES; DRAW SITE LT RADIAL; LITER FLOW 7 L/M; NUMBER OF ARTERIAL PUNCTURES 1; OXYGEN DEVICE SIMPLE MASK; STAT YES; ULNAR PULSE PRESENT
[2017-01-08] MEDS: ACETAMINOPHEN 325 MG TAB PO PRN (03:11)
[2017-01-08] MEDS ORDERED: DILTIAZEM INJ 125 MG in SODIUM CHLORIDE 0.9% INJ 100 ML IV PRN (03:15)
[2017-01-08 07:37] LABS: BICARBONATE 37.6 MEQ/L (21.0-32.0); MAGNESIUM 2.1 MG/DL (1.5-2.5); POTASSIUM 3.4 MEQ/L (3.5-5.1)
[2017-01-08] MEDS: OXYBUTYNIN CHLORIDE 5 MG TAB PO SCH ×2 (08:28→20:56)
[2017-01-08] MEDS: ASPIRIN EC 81 MG TABEC PO SCH (08:29)
[2017-01-08] MEDS: POTASSIUM CHLORIDE 20 MEQ CONTROLLED RELEASE TAB PO SCH (08:29)
[2017-01-08] MEDS: FUROSEMIDE 40 MG TAB PO SCH (08:30)
[2017-01-08] MEDS: SODIUM CHLORIDE 0.9% FLUSH 10 ML FLUSH IV FLUSH SCH ×2 (08:31→20:56)
[2017-01-08] MEDS: TIMOLOL MALEATE 0.5% OPHT SOLN 5 ML BTL EACH EYE SCH (08:34)
[2017-01-08] MEDS: RESP: ALBUTEROL 2.5 MG/IPRATROPIUM 0.5 MG NEB (SCH) NEB ×2 (08:38→17:08)
--- NOTE | 2017-01-08 14:46 | EKG ---
Date Performed: 01/08/2017 Time Performed: 02:51:24 PTAGE: 89 years EKG: Atrial fibrillation with rapid ventricular response. Left bundle branch block Abnormal ECG PREVIOUS TRACING : 01/08/2017 02.49 Since previous tracing, no significant change noted DOCTOR: Bradley Miller Interpretating Date/Time 01/08/2017 14:45:33
--- NOTE | 2017-01-08 14:46 | EKG ---
Date Performed: 01/08/2017 Time Performed: 02:49:52 PTAGE: 89 years EKG: Technically poor tracing with marked baseline wandering, making interpretation of the limb leads very difficult Left bundle branch block Atrial fibrillation with rapid ventricular response Com pared to previous tracing, heart rate is faster Abnormal ECG PREVIOUS TRACING 01/05/2017 10.20.04 DOCTOR: Bradley Miller Interpretating Date/Time 01/08/2017 14:45:05
[2017-01-08] MEDS ORDERED: DIGOXIN 0.5 MG/2 ML VIAL IV PUSH ONE (18:15)
--- NOTE | 2017-01-08 18:24 | HHI.PR ---
Subjective Remarks Pt slept most of the day. No c/o chest pain or palpitations. Pt developed Afib with RVR. RVR resolved after receiving carizem 10mg IV Pt's BP readings are in the low 100s. Will start IV digoxin Objective Vitals Vital Signs Date Time Temp Pulse Resp B/P Pulse Ox O2 Delivery O2 Flow Rate FiO2 01/08/17 16:14 99.8 84 19 100/57 100 01/08/17 12:06 98.5 89 18 106/57 95 01/08/17 08:40 97 Nasal Cannula 2.00 01/08/17 08:27 98.8 81 18 103/52 96 01/08/17 08:10 Nasal Cannula 2.00 01/08/17 04:00 98.0 101 22 101/55 92 01/08/17 02:45 95 2.00 01/08/17 00:00 98.6 89 20 131/63 92 01/07/17 23:58 91 Nasal Cannula 2.00 01/07/17 20:00 98.5 82 20 107/59 92 01/07/17 20:00 87 01/07/17 20:00 Nasal Cannula 3.00 01/07/17 01/07/17 01/08/17 15:00 23:00 07:00 Intake Total 600 ml 200 ml 220 ml Output Total 300 ml 400 ml Balance 600 ml -100 ml -180 ml Intake Oral 600 ml 200 ml 220 ml Output Urine Total 300 ml 400 ml # Voids 1 # Bowel Movements 0 0 0 Result Diagram: 01/07/17 0708 01/08/17 0604 Imaging Last Impressions Lower Extremity Ultrasound 01/05/17 0000 Signed Impressions: Service Date/Time: December 10:27 - CONCLUSION: Normal examination. Db Melchor MD Chest X-Ray 01/05/17 0000 Signed Impressions: Service Date/Time: December 10:15 - CONCLUSION: CHF Db Melchor MD Objective Remarks General: NAD, AAOx3 HEENT: oral mucous membranes somewhat dry Chest: improved air movement from admission Cardiac: Irregular Abd: +BS, soft ND/NT Ext: no c/c/e A/P Problem List: (1) CHF exacerbation Status: Acute Plan: - Pt admitted with complaints of worsening SOB and LE edema. - Pt had recently received a blood transfusion as his Hgb/Hct on 12/26/16 as an outpt was notably decreased to 7.9/25.3. - Following the blood transfusion on 12/30 his H/H has increased to 9.4/29.4 which is about his baseline. - He has had increased SOB and LE edema since his transfusion. - Workup in the ED revealed BNP 648, pt was hypoxic on RA at 88% which improved with supplemental O2. - CXR revealed findings consistent with CHF. - LE US was negative for DVT. - Pt was given Lasix 20mg IV in the ED, then 40mg IV BID - CXR (01/07/17) --> CHF - 2D echo (01/05) --> estimated EF 50%, possible moderate basal inferior and basal posterior hypokinesis, trace aortic regurgitation, moderate mitral regurgitation, LA mildly dilated , RA mildly dilated, mild- moderate tricuspid regurgitation. - Telemetry with A. vida with maico in the 40's during the day and nurse reports into the 30's when he's sleeping. Pt is not on any BB - Holter Monitor --> pending RE: bradycardia - clinically pt seems improved. Hesitant to diuresis pt too aggressively given advanced age - change lasix to 40mg daily - cxr (01/08/17) --> CHF, BNP elevated at 993 - repeat BNP in AM, if continues to increase may need to change lasix back to IV - Duonebs - Supportive care - Monitor vitals closely (2) Atrial fibrillation Status: Chronic Plan: - Pt developed RVR last night which became rate controlled following a single dose of IV cardizem 10mg - Cont. ASA - Hold Coumadin today as INR is 3.2 (01/07/17), 3.7 (01/08/17) --> continue to hold coumadin, repeat INR in AM - start IV digoxin - obtain digoxin level in AM - await holter - Telemetry (3) Chronic anemia Status: Chronic Plan: - As above. - Labs are stable currently. - Monitor Problem Qualifiers (1) CHF exacerbation: Qualified Code: I50.9 - Acute on chronic congestive heart failure, unspecified congestive heart failure type Angel Collins DO January 08, 2017 18:24
[2017-01-08] MEDS: TERAZOSIN HCL 5 MG CAP PO SCH (20:56)
[2017-01-08] MEDS: PRAVASTATIN SOD 80 MG TAB PO SCH (20:56)
[2017-01-09] VITALS (11 sets, daily range): BP systolic 93–123; BP diastolic 54–58; PULSE 77–89; RESP 18–24; TEMP 99.4–102.9; O2SAT 88–99
[2017-01-09] MEDS: RESP: ALBUTEROL 2.5 MG/IPRATROPIUM 0.5 MG NEB (SCH) NEB ×4 (00:16→20:51)
[2017-01-09] MEDS ORDERED: DIGOXIN 0.5 MG/2 ML VIAL IV PUSH ONE (02:00)
[2017-01-09] MEDS: ACETAMINOPHEN 325 MG TAB PO PRN ×2 (02:46→13:16)
--- NOTE | 2017-01-09 08:26 | HM ---
Date Performed: 01/07/2017 Time Performed: 12:49:00 HOOKUP DATE: 01/07/17 12:49:00 PM Sat ANALYSIS START TIME: 01/07/2017 12:54:00 PM ANALYSIS END TIME: 01/08/2017 6:50:42 AM PATIENT AGE: 89 PATIENT HEIGHT PATIENT WEIGHT DRUG LIST PATIENT DIAGNOSIS: CHF EXACERBATION TEST NARRATIVE: The patient's average heart rate was 95 BPM. Heart rates greater than 120 B PM were noted 18% of the time. No episodes of bradycardia were noted. No pauses exceeding 2.0 se conds were noted. 161 ventricular ectopics, which represented < 1% of the total beat count, were noted. The highest ventricular ectopic frequency occurred from 11:00 PM to 12:00 AM Sun. During thi s time 24 VE(s) occurred. Ventricular ectopics were observed as 159 isolated beat(s) and as 1 couple t(s). No runs were noted. No supraventricular ectopics were noted. Multiple episodes of ST d epression (defined as -1.0 mm or more) were noted in channel 1. The maximum depression of -3.3 mm o ccurred at 11:24:22 PM Sat. Multiple episodes of ST depression (defined as -1.0 mm or more) were no ailyn in channel 2. The maximum depression of -3.3 mm occurred at 01:04:52 AM Sun. Multiple episodes of ST depression (defined as -1.0 mm or more) were noted in channel 3. The maximum depression of -2 .5 mm occurred at 11:46:50 PM Sat. PATIENT REMOVED LEADS SEVERAL TIMES, POOR QUALITY TRACING TEST INTERPRETATION: No diary is included. Apparently the tracing has a lot of artifact as the patient removed the leads numerous times. The underlying rhythm is atrial fibrillation with bundle b ranch block. Average heart rate is 95 bpm with a range of 50-185 bpm. No significant pauses are pre sent. Rare PVCs versus aberrantly conducted beats are seen. Signed by : Wero Silva
[2017-01-09 08:37] LABS: HEMATOCRIT 30.5 % (39.0-51.0); MEAN CELL VOLUME 94.5 FL (80.0-100.0); MEAN CORPUSCULAR HEMOGLOBIN 31.9 PG (27.0-34.0); MEAN CORPUSCULAR HGB CONC 33.7 % (32.0-36.0); PLATELET COUNT 140 TH/MM3 (150-450); RED BLOOD COUNT 3.22 MIL/MM3 (4.50-5.90); RED CELL DISTRIBUTION WIDTH 18.1 % (11.6-17.2); WHITE BLOOD COUNT 7.4 TH/MM3 (4.0-11.0)
[2017-01-09 08:45] LABS: HEMO FLAGS AUTO DIFF
[2017-01-09] MEDS: POTASSIUM CHLORIDE 20 MEQ CONTROLLED RELEASE TAB PO SCH (08:45)
[2017-01-09] MEDS: ASPIRIN EC 81 MG TABEC PO SCH (08:45)
[2017-01-09] MEDS: FUROSEMIDE 40 MG TAB PO SCH (08:46)
[2017-01-09] MEDS: OXYBUTYNIN CHLORIDE 5 MG TAB PO SCH ×2 (08:46→21:49)
[2017-01-09 08:49] LABS: INTERNATIONAL NORMALIZED RATIO 3.5 RATIO; PROTHROMBIN TIME - PATIENT 41.4 SEC (9.8-11.6)
[2017-01-09] MEDS: TIMOLOL MALEATE 0.5% OPHT SOLN 5 ML BTL EACH EYE SCH (08:58)
[2017-01-09] MEDS: SODIUM CHLORIDE 0.9% FLUSH 10 ML FLUSH IV FLUSH SCH ×2 (09:02→21:50)
[2017-01-09 09:16] LABS: BICARBONATE 40.5 MEQ/L (21.0-32.0); DIGOXIN 1.8 NG/ML (0.8-2.0); POTASSIUM 3.7 MEQ/L (3.5-5.1)
[2017-01-09 09:57] LABS: ACANTHOCYTES OCC (NORMAL); BANDS 18 % (0-6); NEUTROPHIL # MANUAL DIFF 5.6 TH/MM3 (1.8-7.7); PLATELET ESTIMATE SMEAR LOW (NORMAL); PLATELET MORPHOLOGY NORMAL (NORMAL); POLYS (SEG NEUTROPHILS) 57 % (16-70); SCAN/DIFF FINAL DIFF MANUAL; WBC DIFF SAMPLE 100
--- NOTE | 2017-01-09 10:04 | HHI.PR ---
Subjective Remarks pt had fever overnight. currently no complaints Objective Vitals heart reg lung scattered wheeze abd distended. bs. nt ext no edema Vital Signs Date Time Temp Pulse Resp B/P Pulse Ox O2 Delivery O2 Flow Rate FiO2 01/09/17 08:14 97 Nasal Cannula 2.00 01/09/17 06:26 99.5 01/09/17 03:00 102.9 84 24 123/58 98 01/09/17 00:17 94 Nasal Cannula 2.00 01/08/17 23:30 98.9 85 26 168/69 97 01/08/17 20:35 98.2 72 22 110/57 96 01/08/17 20:00 Nasal Cannula 2.00 01/08/17 20:00 63 01/08/17 16:14 99.8 84 19 100/57 100 01/08/17 12:06 98.5 89 18 106/57 95 01/08/17 01/08/17 01/09/17 15:00 23:00 07:00 Intake Total 480 ml 200 ml 120 ml Output Total 250 ml Balance 480 ml -50 ml 120 ml Intake Oral 480 ml 200 ml 120 ml Output Urine Total 250 ml # Voids 2 3 # Bowel Movements 0 1 Result Diagram: 01/09/17 0811 01/09/17 0811 Imaging Last Impressions Lower Extremity Ultrasound 01/05/17 0000 Signed Impressions: Service Date/Time: December 10:27 - CONCLUSION: Normal examination. Db Melchor MD Chest X-Ray 01/05/17 0000 Signed Impressions: Service Date/Time: December 10:15 - CONCLUSION: CHF Db Melchor MD A/P Problem List: (1) CHF exacerbation Status: Acute Plan: - Pt admitted with complaints of worsening SOB and LE edema. - Pt had recently received a blood transfusion as his Hgb/Hct on 12/26/16 as an outpt was notably decreased to 7.9/25.3. - Following the blood transfusion on 12/30 his H/H has increased to 9.4/29.4 which is about his baseline. - He has had increased SOB and LE edema since his transfusion. - Workup in the ED revealed BNP 648, pt was hypoxic on RA at 88% which improved with supplemental O2. - CXR revealed findings consistent with CHF. - LE US was negative for DVT. - 2D echo (01/05) --> estimated EF 50%, possible moderate basal inferior and basal posterior hypokinesis, trace aortic regurgitation, moderate mitral regurgitation, LA mildly dilated , RA mildly dilated, mild- moderate tricuspid regurgitation. - Telemetry with A. fib with maico in the 40's during the day and nurse reports into the 30's when he's sleeping. Pt is not on any BB - Holter Monitor --> pending RE: bradycardia - Supportive care cont gentle diuresis and monitor cr. monitor for further fever. w/up as needed. oob/PT> recheck inr. hold coumadin. (2) Atrial fibrillation Status: Chronic Plan: - Pt developed RVR. has had dilt and dig. off meds. now. - Hold Coumadin today --> continue to hold coumadin, repeat INR in AM - Telemetry (3) Chronic anemia Status: Chronic Plan: - As above. - Labs are stable currently. - Monitor Problem Qualifiers (1) CHF exacerbation: Qualified Code: I50.9 - Acute on chronic congestive heart failure, unspecified congestive heart failure type Bradley Jones MD January 09, 2017 10:04
--- NOTE | 2017-01-09 11:43 | RADRPT ---
EXAM DATE/TIME: 01/09/2017 11:21 [facility] COMPARISON: No previous studies available for comparison. INDICATIONS : Abdominal pain , evaluate ileus. MEDICAL HISTORY : Carcinoma, prostatic. Carcinoma, colon. SURGICAL HISTORY : CABG. Colon resection. ENCOUNTER: Subsequent ACUITY: 4 - 6 days PAIN SCORE: Non-responsive. LOCATION: Bilateral abdomen FINDINGS: 3 supine frontal views of the abdomen demonstrate air within bowel in a nonobstructive pattern. Most of the gas present is colon gas. No organomegaly or concerning calcifications are visualized. There a re degenerative changes throughout the thoracic and lumbar spine and there is osteoarthritis of the r ight hip joint. Patient is post median sternotomy. There is calcification of the aorta. Blunting of t he right costophrenic sulcus is visualized. CONCLUSION: 1. There is a nonobstructive bowel gas pattern. 2. Small right pleural effusion. Db Werner MD on January 09, 2017 at 11:40 Board Certified Radiologist. This report was verified electronically.
[2017-01-09] MEDS: LEVOFLOXACIN 500 MG PREMIX INJ 100 ML IV SCH (11:53)
[2017-01-09] MEDS: PRAVASTATIN SOD 80 MG TAB PO SCH (21:49)
[2017-01-09] MEDS: TERAZOSIN HCL 5 MG CAP PO SCH (21:49)
[2017-01-10] VITALS (10 sets, daily range): BP systolic 101–138; BP diastolic 50–66; PULSE 62–88; RESP 18–20; TEMP 97.7–100.4; O2SAT 93–96
[2017-01-10] MEDS: ACETAMINOPHEN 325 MG TAB PO PRN (00:50)
[2017-01-10] MEDS: RESP: ALBUTEROL 2.5 MG/IPRATROPIUM 0.5 MG NEB (SCH) NEB ×4 (03:58→21:46)
--- NOTE | 2017-01-10 06:40 | RADRPT ---
EXAM DATE/TIME: 01/10/2017 05:21 [facility] COMPARISON: CHEST PA & LAT, January 07, 2017, 9:23. INDICATIONS : Short of breath, evaluate congestive heart failure MEDICAL HISTORY : Carcinoma, prostatic. Carcinoma, colon. Congestive heart failure. SURGICAL HISTORY : CABG. Colon resection. ENCOUNTER: Subsequent ACUITY: 4 - 6 days PAIN SCORE: 0/10 LOCATION: Bilateral chest FINDINGS: Hazy pleuroparenchymal density over the right chest is stable consistent with infiltrate or layering effusion. Left base consolidative changes and patchy infiltrate in the remainder the left lung is aga in noted. Hernia contours are grossly stable accounting for differences in technique and projection. CONCLUSION: Grossly stable chest appearance Db Melchor MD on January 10, 2017 at 6:37 Board Certified Radiologist. This report was verified electronically.
[2017-01-10 07:36] LABS: INTERNATIONAL NORMALIZED RATIO 3.6 RATIO; PROTHROMBIN TIME - PATIENT 42.2 SEC (9.8-11.6)
[2017-01-10 08:02] LABS: BICARBONATE 39.1 MEQ/L (21.0-32.0); POTASSIUM 3.8 MEQ/L (3.5-5.1)
[2017-01-10] MEDS: FUROSEMIDE 40 MG TAB PO SCH (08:29)
[2017-01-10] MEDS: SODIUM CHLORIDE 0.9% FLUSH 10 ML FLUSH IV FLUSH SCH ×2 (08:29→21:04)
[2017-01-10] MEDS: ASPIRIN EC 81 MG TABEC PO SCH (08:29)
[2017-01-10] MEDS: POTASSIUM CHLORIDE 20 MEQ CONTROLLED RELEASE TAB PO SCH (08:29)
[2017-01-10 09:20] LABS: MEAN CELL VOLUME 95.6 FL (80.0-100.0); MEAN CORPUSCULAR HEMOGLOBIN 30.8 PG (27.0-34.0); MEAN CORPUSCULAR HGB CONC 32.2 % (32.0-36.0); PLATELET COUNT 120 TH/MM3 (150-450); RED BLOOD COUNT 3.25 MIL/MM3 (4.50-5.90); RED CELL DISTRIBUTION WIDTH 17.8 % (11.6-17.2); WHITE BLOOD COUNT 7.9 TH/MM3 (4.0-11.0)
[2017-01-10 09:23] LABS: HEMO FLAGS AUTO DIFF
--- NOTE | 2017-01-10 10:27 | HHI.PR ---
Subjective Remarks not eating much per nursing Objective Vitals heart reg lung course bs abd s/nt ext no edema Vital Signs Date Time Temp Pulse Resp B/P Pulse Ox O2 Delivery O2 Flow Rate FiO2 01/10/17 08:40 96 Nasal Cannula 2.00 01/10/17 08:00 98.1 81 20 138/66 93 01/10/17 04:00 99.4 83 18 102/50 95 01/10/17 00:00 100.4 88 20 115/55 95 01/09/17 21:00 Nasal Cannula 2.00 01/09/17 21:00 83 01/09/17 20:51 95 Nasal Cannula 2.00 01/09/17 20:00 99.4 79 18 93/54 96 01/09/17 16:00 100.3 82 20 111/57 88 01/09/17 12:00 100.1 77 20 112/55 95 01/09/17 01/09/17 01/10/17 15:00 23:00 07:00 Intake Total 120 ml 0 ml 0 ml Output Total 0 ml Balance 120 ml 0 ml 0 ml Intake Oral 120 ml 0 ml 0 ml Output Urine Total 0 ml # Voids 2 1 # Bowel Movements 1 0 0 Result Diagram: 01/10/17 0815 01/10/17 0622 Imaging Last Impressions Lower Extremity Ultrasound 01/05/17 0000 Signed Impressions: Service Date/Time: December 10:27 - CONCLUSION: Normal examination. Db Melchor MD Chest X-Ray 01/05/17 0000 Signed Impressions: Service Date/Time: December 10:15 - CONCLUSION: CHF Db Melchor MD A/P Problem List: (1) CHF exacerbation Status: Acute Plan: - Pt admitted with complaints of worsening SOB and LE edema. - Pt had recently received a blood transfusion as his Hgb/Hct on 12/26/16 as an outpt was notably decreased to 7.9/25.3. - Following the blood transfusion on 12/30 his H/H has increased to 9.4/29.4 which is about his baseline. - He has had increased SOB and LE edema since his transfusion. - Workup in the ED revealed BNP 648, pt was hypoxic on RA at 88% which improved with supplemental O2. - CXR revealed findings consistent with CHF. - LE US was negative for DVT. - 2D echo (01/05) --> estimated EF 50%, possible moderate basal inferior and basal posterior hypokinesis, trace aortic regurgitation, moderate mitral regurgitation, LA mildly dilated , RA mildly dilated, mild- moderate tricuspid regurgitation. - Telemetry with A. vida with maico in the 40's during the day and nurse reports into the 30's when he's sleeping. Pt is not on any BB - Supportive care hold diuresis with rising cr fever and infiltrates persist. ct pending. on emperic abx oob/PT> recheck inr. hold coumadin. will need snf. (2) Atrial fibrillation Status: Chronic Plan: - Pt developed RVR. has had dilt and dig. off meds. now. - Hold Coumadin today --> continue to hold coumadin, repeat INR in AM - Telemetry (3) Chronic anemia Status: Chronic Plan: - As above. - Labs are stable currently. - Monitor Problem Qualifiers (1) CHF exacerbation: Qualified Code: I50.9 - Acute on chronic congestive heart failure, unspecified congestive heart failure type Bradley Jones MD January 10, 2017 10:27
--- NOTE | 2017-01-10 10:51 | RADRPT ---
EXAM DATE/TIME: 01/10/2017 10:14 [facility] COMPARISON: CHEST SINGLE AP, January 10, 2017, 5:21. INDICATIONS : Shortness of breath. RADIATION DOSE: 8.67 CTDIvol (mGy) MEDICAL HISTORY : Cardiovascular disease. Hypertension. Carcinoma, prostate. Oral cancer, colon cancer. SURGICAL HISTORY : None. ENCOUNTER: Initial ACUITY: 1 day PAIN SCALE: 0/10 LOCATION: Bilateral chest TECHNIQUE: Volumetric scanning of the chest was performed. Using automated exposure control and adjustment of t he mA and/or kV according to patient size, radiation dose was kept as low as reasonably achievable to obtain optimal diagnostic quality images. FINDINGS: LUNGS: There is bibasilar atelectasis, right greater than left. There is prominence of the pulmonary vascula ture characteristic of venous congestion and/or pulmonary edema. There is compressive atelectasis in the right lung base. PLEURAE: There is a moderate right-sided pleural effusion. There is some pleural thickening on the left side. MEDIASTINUM: The heart and great vessels demonstrate no acute abnormality. There is no mediastinal or hilar lymph adenopathy. The heart size is diffusely enlarged. There is evidence of previous cardiothoracic surger y. AXILLAE: Within normal limits. No lymphadenopathy. MUSCULOSKELETAL: Within normal limits for patient age. Primary degenerative changes. MISCELLANEOUS: The visualized upper abdominal organs demonstrate no acute abnormality. Gallstones in gallbladder. CONCLUSION: 1. Moderate right-sided pleural effusion. 2. Bibasilar atelectasis, right greater than left. 3. Pulmonary venous congestion versus edema.. Toni Orozco MD on January 10, 2017 at 10:46 Board Certified Radiologist. This report was verified electronically.
[2017-01-10 10:55] LABS: BANDS 19 % (0-6); NEUTROPHIL # MANUAL DIFF 6.4 TH/MM3 (1.8-7.7); POLYS (SEG NEUTROPHILS) 62 % (16-70); TOXIC GRANULATION 2+ (NORMAL); WBC DIFF SAMPLE 100
[2017-01-10] MEDS: OXYBUTYNIN CHLORIDE 5 MG TAB PO SCH ×2 (10:55→21:04)
[2017-01-10] MEDS: TIMOLOL MALEATE 0.5% OPHT SOLN 5 ML BTL EACH EYE SCH (10:55)
[2017-01-10 10:56] LABS: ACANTHOCYTES OCC (NORMAL); KERATOCYTES OCC (NORMAL); PLATELET ESTIMATE SMEAR LOW (NORMAL); PLATELET MORPHOLOGY ENLARGED (NORMAL)
[2017-01-10 10:57] LABS: SCAN/DIFF FINAL DIFF MANUAL
[2017-01-10] MEDS: LEVOFLOXACIN 500 MG PREMIX INJ 100 ML IV SCH (10:58)
[2017-01-10] MEDS: TERAZOSIN HCL 5 MG CAP PO SCH (21:04)
[2017-01-10] MEDS: PRAVASTATIN SOD 80 MG TAB PO SCH (21:04)
[2017-01-11] VITALS (11 sets, daily range): BP systolic 98–129; BP diastolic 55–89; PULSE 76–88; RESP 18–20; TEMP 97.7–99.2; O2SAT 93–98
[2017-01-11] MEDS: RESP: ALBUTEROL 2.5 MG/IPRATROPIUM 0.5 MG NEB (SCH) NEB ×4 (04:39→21:08)
[2017-01-11 07:33] LABS: INTERNATIONAL NORMALIZED RATIO 3.1 RATIO; PROTHROMBIN TIME - PATIENT 36.4 SEC (9.8-11.6)
[2017-01-11 08:06] LABS: BICARBONATE 41.6 MEQ/L (21.0-32.0); POTASSIUM 3.8 MEQ/L (3.5-5.1)
[2017-01-11] MEDS: SODIUM CHLOR 0.9% 1000 ML INJ 1,000 ML IV SCH ×2 (08:45→23:03)
[2017-01-11] MEDS ORDERED: PHYTONADIONE 5 MG TAB PO ONE ×2 (08:45→17:00)
[2017-01-11] MEDS: SODIUM CHLORIDE 0.9% FLUSH 10 ML FLUSH IV FLUSH SCH ×2 (09:00→20:48)
[2017-01-11] MEDS: OXYBUTYNIN CHLORIDE 5 MG TAB PO SCH ×2 (09:33→20:43)
[2017-01-11] MEDS: ASPIRIN EC 81 MG TABEC PO SCH (09:33)
[2017-01-11] MEDS: TIMOLOL MALEATE 0.5% OPHT SOLN 5 ML BTL EACH EYE SCH (09:34)
[2017-01-11] MEDS: LEVOFLOXACIN 250 MG PREMIX INJ 50 ML IV SCH (12:21)
--- NOTE | 2017-01-11 19:49 | HHI.PR ---
Subjective Remarks more confused. and son present. updated and they say he is dnr. they agree with thoracentesis and snf Objective Vitals consfused dry mouth heart reg lung dimished right lung abd s/nt ext no edema Vital Signs Date Time Temp Pulse Resp B/P Pulse Ox O2 Delivery O2 Flow Rate FiO2 01/11/17 16:00 98.4 86 18 128/62 94 01/11/17 15:21 93 Nasal Cannula 2.00 01/11/17 12:00 98.9 86 20 98/69 95 01/11/17 10:11 98 Nasal Cannula 2.00 01/11/17 08:12 81 01/11/17 08:00 Nasal Cannula 2.00 01/11/17 08:00 98.2 88 20 129/61 93 01/11/17 04:00 Nasal Cannula 2.00 01/11/17 04:00 97.7 81 20 115/56 93 01/11/17 00:00 Nasal Cannula 2.00 01/11/17 00:00 98.2 76 20 112/56 95 01/10/17 21:46 94 Nasal Cannula 2.00 01/10/17 20:15 74 01/10/17 20:00 97.7 73 18 110/56 96 01/10/17 20:00 Nasal Cannula 2.00 01/10/17 01/10/17 01/11/17 15:00 23:00 07:00 Intake Total 320 ml 0 ml 0 ml Balance 320 ml 0 ml 0 ml Intake Oral 320 ml 0 ml 0 ml # Voids 1 2 2 # Bowel Movements 0 0 0 Result Diagram: 01/10/17 0815 01/11/17 0632 Imaging Last Impressions Lower Extremity Ultrasound 01/05/17 0000 Signed Impressions: Service Date/Time: December 10:27 - CONCLUSION: Normal examination. Db Melchor MD Chest X-Ray 01/05/17 0000 Signed Impressions: Service Date/Time: December 10:15 - CONCLUSION: CHF Db Melchor MD A/P Problem List: (1) CHF exacerbation Status: Acute Plan: - Pt admitted with complaints of worsening SOB and LE edema. - Pt had recently received a blood transfusion as his Hgb/Hct on 12/26/16 as an outpt was notably decreased to 7.9/25.3. - Following the blood transfusion on 12/30 his H/H has increased to 9.4/29.4 which is about his baseline. - He has had increased SOB and LE edema since his transfusion. - Workup in the ED revealed BNP 648, pt was hypoxic on RA at 88% which improved with supplemental O2. - CXR revealed findings consistent with CHF. - LE US was negative for DVT. - 2D echo (01/05) --> estimated EF 50%, possible moderate basal inferior and basal posterior hypokinesis, trace aortic regurgitation, moderate mitral regurgitation, LA mildly dilated , RA mildly dilated, mild- moderate tricuspid regurgitation. - Telemetry with A. fib with maico in the 40's during the day and nurse reports into the 30's when he's sleeping. Pt is not on any BB - hold diuresis with rising cr. stated some gentle ivf hopefully delerium will improve if shmuel resolves fever felt most likely lung source. better on emperic abx discussed thoracentesis with family..they agree. will give vit k for coumadin If stablilizes from pulmonary/neuro/renal standpt will d/c to snf family says he wants dnr (2) Atrial fibrillation Status: Chronic Plan: - Pt developed RVR. has had dilt and dig. off meds. now. - Hold Coumadin today --> continue to hold coumadin, repeat INR in AM - Telemetry (3) Chronic anemia Status: Chronic Plan: - As above. - Labs are stable currently. - Monitor Problem Qualifiers (1) CHF exacerbation: Qualified Code: I50.9 - Acute on chronic congestive heart failure, unspecified congestive heart failure type Bradley Jones MD January 11, 2017 19:49
[2017-01-11] MEDS: TERAZOSIN HCL 5 MG CAP PO SCH (20:43)
[2017-01-11] MEDS: PRAVASTATIN SOD 80 MG TAB PO SCH (20:43)
[2017-01-12] VITALS (11 sets, daily range): BP systolic 98–126; BP diastolic 50–69; PULSE 70–90; RESP 18–20; TEMP 97.2–99; O2SAT 92–97
[2017-01-12] MEDS: RESP: ALBUTEROL 2.5 MG/IPRATROPIUM 0.5 MG NEB (SCH) NEB ×4 (04:37→21:24)
[2017-01-12 07:21] LABS: INTERNATIONAL NORMALIZED RATIO 2.2 RATIO; PROTHROMBIN TIME - PATIENT 25.4 SEC (9.8-11.6)
[2017-01-12 07:45] LABS: BICARBONATE 41.2 MEQ/L (21.0-32.0); POTASSIUM 3.4 MEQ/L (3.5-5.1)
[2017-01-12 07:47] LABS: INDIRECT BILIRUBIN 0.6 MG/DL (0.0-0.8); TOTAL BILIRUBIN ADULT 1.7 MG/DL (0.2-1.0)
[2017-01-12] MEDS ORDERED: PHYTONADIONE 5 MG TAB PO STA (07:57)
[2017-01-12] MEDS: ASPIRIN EC 81 MG TABEC PO SCH (09:04)
[2017-01-12] MEDS: OXYBUTYNIN CHLORIDE 5 MG TAB PO SCH ×2 (09:04→21:57)
[2017-01-12] MEDS: TIMOLOL MALEATE 0.5% OPHT SOLN 5 ML BTL EACH EYE SCH (09:04)
[2017-01-12] MEDS: SODIUM CHLORIDE 0.9% FLUSH 10 ML FLUSH IV FLUSH SCH ×2 (09:04→21:58)
[2017-01-12] MEDS: LEVOFLOXACIN 250 MG PREMIX INJ 50 ML IV SCH (11:20)
[2017-01-12] MEDS: SODIUM CHLOR 0.9% 1000 ML INJ 1,000 ML IV SCH (11:20)
[2017-01-12 13:19] LABS: INTERNATIONAL NORMALIZED RATIO 1.6 RATIO; PROTHROMBIN TIME - PATIENT 18.1 SEC (9.8-11.6)
--- NOTE | 2017-01-12 16:19 | RADRPT ---
EXAM DATE/TIME: 01/12/2017 16:00 [facility] COMPARISON: No previous studies available for comparison. INDICATIONS : Post thoracentesis. MEDICAL HISTORY : None. SURGICAL HISTORY : CABG. ENCOUNTER: Initial ACUITY: 1 day PAIN SCORE: 0/10 LOCATION: Right chest FINDINGS: Upright portable AP view of the chest following right thoracentesis demonstrates no pneumothorax. The re is slight blunting of the right costophrenic angle with mild bibasilar atelectasis. CONCLUSION: No pneumothorax is visualized following recent right thoracentesis. Db Werner MD on January 12, 2017 at 16:17 Board Certified Radiologist. This report was verified electronically.
--- NOTE | 2017-01-12 16:33 | RADRPT ---
EXAM DATE/TIME: 01/12/2017 15:18 [facility] COMPARISON: No previous studies available for comparison. INDICATIONS : Right pleural effusion. MEDICAL HISTORY : Hypercholesterolemia. Hypertension. SURGICAL HISTORY : CABG ENCOUNTER: Initial ACUITY: 1 day PAIN SCORE: 2/10 LOCATION: Right chest FLUID: Total volume of 400 cc of clear, red fluid was removed. Fluid was sent to lab for ordered studies. TECHNIQUE: 1. Ultrasound guidance for thoracentesis. 2. Thoracentesis. The risks, benefits, and alternatives to ultrasound guided thoracentesis were explained to the patien t in lay simple terms, including the risk of bleeding and infection. Written and verbal informed con sent was obtained. Appropriate area for thoracentesis was marked under ultrasound guidance with the patient in the uprig ht position. Overlying skin was prepped and draped in the usual sterile fashion and with local anest hetic, a dermatotomy was made with an 11 blade scalpel. A 6 Icelandic thoracentesis catheter was placed in the pleural space and fluid was removed. Catheter was then removed and a sterile dressing applie d. There were no immediate complications. The patient tolerated the procedure well and the left the ultrasound suite in stable condition. Chest radiograph is to be obtained. CONCLUSION: Uncomplicated ultrasound guided thoracentesis. Db Werner MD on January 12, 2017 at 16:31 Board Certified Radiologist. This report was verified electronically.
[2017-01-12 16:53] LABS: PLEURAL FLUID PH 8.5
--- NOTE | 2017-01-12 17:19 | RADRPT ---
EXAM DATE/TIME: 01/12/2017 16:31 [facility] COMPARISON: No previous studies available for comparison. INDICATIONS : Right shoulder pain from swelling. RADIATION DOSE: 24.62 CTDIvol (mGy) MEDICAL HISTORY : Hypertension. Carcinoma, prostate. Oral cancer. SURGICAL HISTORY : Colon resection. ENCOUNTER: Initial ACUITY: 1 day PAIN SCALE: Non-responsive LOCATION: Right shoulder TECHNIQUE: Volumetric scanning of the shoulder was performed. Using automated exposure control and adjustment o f the mA and/or kV according to patient size, radiation dose was kept as low as reasonably achievable to obtain optimal diagnostic quality images. FINDINGS: Bone alignment is within normal image. No evidence of fracture. Small glenohumeral joint osteophytes and mild glenohumeral joint narrowing. Moderate severity acromioclavicular joint hypertrophic change. Soft tissue hypertrophy or ganglion cyst measuring 3.6 x 2.2 cm extends superiorly from the acromioc lavicular joint. Moderate sized glenohumeral joint effusion. Diffuse superficial soft tissue edema. Enlargement of the lateral deltoid muscle diffusely. Several f oci of gas are seen within the deltoid muscle belly. Surrounding low density area measuring 2.5 cm in the lateral deltoid muscle suspicious for abscess. The partially visualized. More inferiorly at the level of the proximal humeral shaft there is a 2.5 x 2.2 cm rounded area of mixed density and may rep resent hematoma or abscess. The This posterior to the acromioclavicular joint there is ill-defined gas and fluid density in the supra spinatus muscle belly measuring 3-4 cm in diameter. Integrity of the rotator cuff tendons cannot be rigorously evaluated on CT without intra-articular co ntrast. CONCLUSION: 1. Rounded areas of gas and fluid in the lateral deltoid muscle and the supraspinatus muscle. Promine nt surrounding edema. Findings are suspicious for abscess in the proper clinical setting. Recommend M RI or CT humerus with contrast if possible to better define the possible fluid collections. Scan shou ld include [id number] from shoulder to at least mid humerus shaft. 2. Moderate acromioclavicular joint arthrosis. 3. Mild to moderate glenohumeral joint arthrosis and prominent glenohumeral joint effusion. Jose Osuna MD on January 12, 2017 at 17:09 Board Certified Radiologist. This report was verified electronically.
[2017-01-12 17:32] LABS: PLEURAL FLUID LYMPHS 86 %
--- NOTE | 2017-01-12 19:29 | RADRPT ---
EXAM DATE/TIME: 01/12/2017 18:51 [facility] COMPARISON: No previous studies available for comparison. INDICATIONS : Right arm edema. MEDICAL HISTORY : Hypercholesterolemia. Hypertension. A-fib. Arthritis. Prostate cancer. Colon cancer. SURGICAL HISTORY : Total knee replacement, right. Colon resection. ENCOUNTER: Initial ACUITY: 1 day PAIN SCORE: 4/10 LOCATION: Right arm. FINDINGS: There is spontaneous flow documented in the brachial, basilic, cephalic, axillary, and subclavian vei ns. The vessels are compressible and augmentation response is documented. No filling defects are se en. The flow is phasic with respiration. Direction of flow in the jugular vein is caudal. CONCLUSION: Normal examination. Valerio Arias Jr., MD on January 12, 2017 at 19:26 Board Certified Radiologist. This report was verified electronically.
--- NOTE | 2017-01-12 20:42 | HHI.PR ---
Subjective Remarks c/p right shoulder pain and unable to move it. says he fell before admission. now mostly lethargic and confused Objective Vitals right shoulder tenderness and swelling pain and wincing with mvmt dry mouth mostly confused heart reg lung diminished right lung base ext no edema Vital Signs Date Time Temp Pulse Resp B/P Pulse Ox O2 Delivery O2 Flow Rate FiO2 01/12/17 16:08 99.0 90 20 106/53 95 01/12/17 16:00 97.8 84 18 126/69 94 01/12/17 12:00 97.2 70 20 101/60 94 01/12/17 09:49 97 Nasal Cannula 2.00 01/12/17 08:30 Nasal Cannula 2.00 01/12/17 08:00 98.7 78 20 98/57 97 01/12/17 08:00 82 01/12/17 04:50 98.5 80 20 115/59 97 01/12/17 04:39 95 Nasal Cannula 2.00 01/11/17 23:50 98.3 84 18 113/89 95 01/11/17 20:40 99.2 80 18 124/55 97 01/11/17 01/11/17 01/12/17 15:00 23:00 07:00 Intake Total 360 ml 381 ml 597 ml Balance 360 ml 381 ml 597 ml Intake Oral 360 ml 0 ml 0 ml IV Total 381 ml 597 ml # Voids 6 3 3 # Bowel Movements 0 0 0 Result Diagram: 01/10/17 0815 01/12/17 0607 Imaging Last Impressions Lower Extremity Ultrasound 01/05/17 0000 Signed Impressions: Service Date/Time: December 10:27 - CONCLUSION: Normal examination. Db Melchor MD Chest X-Ray 01/05/17 0000 Signed Impressions: Service Date/Time: December 10:15 - CONCLUSION: CHF Db Melchor MD A/P Problem List: (1) CHF exacerbation Status: Acute Plan: - Pt admitted with complaints of worsening SOB and LE edema. - Pt had recently received a blood transfusion as his Hgb/Hct on 12/26/16 as an outpt was notably decreased to 7.9/25.3. - Following the blood transfusion on 12/30 his H/H has increased to 9.4/29.4 which is about his baseline. - He has had increased SOB and LE edema since his transfusion. - Workup in the ED revealed BNP 648, pt was hypoxic on RA at 88% which improved with supplemental O2. - CXR revealed findings consistent with CHF. - LE US was negative for DVT. - 2D echo (01/05) --> estimated EF 50%, possible moderate basal inferior and basal posterior hypokinesis, trace aortic regurgitation, moderate mitral regurgitation, LA mildly dilated , RA mildly dilated, mild- moderate tricuspid regurgitation. - Telemetry with A. fib with maico in the 40's during the day and nurse reports into the 30's when he's sleeping. Pt is not on any BB -Pt developed hyun and dehydration with diuresis -delirium is likely related to hyun. but need to exclude infection right shoulder -right shoulder pain/tenderness/swelling...r/o infection, tear, dvt, etc hold diuretic vit k given...thoracentesis today gentle ivf ct imaging right shoulder on emperic abx - If stablilizes from pulmonary/neuro/renal standpt will d/c to snf family says he wants dnr (2) Shoulder pain Status: Acute Plan: see above (3) HYUN (acute kidney injury) Status: Acute Plan: see above (4) Delirium Status: Acute Plan: see above (5) Chronic anemia Status: Chronic Plan: - As above. - Labs are stable currently. - Monitor (6) Atrial fibrillation Status: Chronic Plan: - Pt developed RVR. has had dilt and dig. off meds. now. - Hold Coumadin today --> continue to hold coumadin, repeat INR in AM - Telemetry Problem Qualifiers (1) CHF exacerbation: Qualified Code: I50.9 - Acute on chronic congestive heart failure, unspecified congestive heart failure type Bradley Jones MD Jan 12, 2017 20:42
[2017-01-12] MEDS: TERAZOSIN HCL 5 MG CAP PO SCH (21:57)
[2017-01-12] MEDS: PRAVASTATIN SOD 80 MG TAB PO SCH (21:57)
[2017-01-13] VITALS (8 sets, daily range): BP systolic 105–130; BP diastolic 58–72; PULSE 70–86; RESP 18–22; TEMP 98.3–100.2; O2SAT 94–97
[2017-01-13] MEDS: SODIUM CHLOR 0.9% 1000 ML INJ 1,000 ML IV SCH (03:58)
[2017-01-13] MEDS: RESP: ALBUTEROL 2.5 MG/IPRATROPIUM 0.5 MG NEB (SCH) NEB ×3 (04:48→15:43)
[2017-01-13] MEDS: OXYBUTYNIN CHLORIDE 5 MG TAB PO SCH ×2 (08:30→21:24)
[2017-01-13] MEDS: ASPIRIN EC 81 MG TABEC PO SCH (08:30)
[2017-01-13] MEDS: SODIUM CHLORIDE 0.9% FLUSH 10 ML FLUSH IV FLUSH SCH ×2 (08:43→21:00)
[2017-01-13] MEDS: TIMOLOL MALEATE 0.5% OPHT SOLN 5 ML BTL EACH EYE SCH (08:44)
--- NOTE | 2017-01-13 09:42 | HHI.PR ---
Subjective Remarks pt more awake and alert today still confused. Objective Vitals heart reg lung improved air entry abd s/nt ext right shoulder swelling/tenderness slightly improved able to passively lift the arm to shoulder level today faint overlying redness shoulder/humerus Vital Signs Date Time Temp Pulse Resp B/P Pulse Ox O2 Delivery O2 Flow Rate FiO2 01/13/17 08:20 Nasal Cannula 2.00 01/13/17 08:00 98.5 86 20 126/72 95 01/13/17 04:49 94 Nasal Cannula 2.00 01/13/17 04:27 98.3 77 18 105/63 96 01/13/17 04:00 Nasal Cannula 2.00 01/13/17 00:00 Nasal Cannula 2.00 01/12/17 23:35 98.1 90 18 110/52 93 01/12/17 21:24 92 Nasal Cannula 2.00 01/12/17 20:40 98.9 75 18 102/50 93 01/12/17 20:00 Nasal Cannula 2.00 01/12/17 20:00 76 01/12/17 16:08 99.0 90 20 106/53 95 01/12/17 16:00 97.8 84 18 126/69 94 01/12/17 12:00 97.2 70 20 101/60 94 01/12/17 09:49 97 Nasal Cannula 2.00 01/12/17 01/12/17 01/13/17 15:00 23:00 07:00 Intake Total 360 ml 542 ml 730 ml Balance 360 ml 542 ml 730 ml Intake Oral 360 ml 120 ml 120 ml IV Total 422 ml 610 ml # Voids 2 3 5 # Bowel Movements 0 0 0 Result Diagram: 01/10/17 0815 01/12/17 0607 Imaging Last Impressions Lower Extremity Ultrasound 01/05/17 0000 Signed Impressions: Service Date/Time: December 10:27 - CONCLUSION: Normal examination. Db Melchor MD Chest X-Ray 01/05/17 0000 Signed Impressions: Service Date/Time: December 10:15 - CONCLUSION: CHF Db Melchor MD A/P Problem List: (1) CHF exacerbation Status: Acute Plan: - Pt admitted with complaints of worsening SOB and LE edema. - Pt had recently received a blood transfusion as his Hgb/Hct on 12/26/16 as an outpt was notably decreased to 7.9/25.3. - Following the blood transfusion on 12/30 his H/H has increased to 9.4/29.4 which is about his baseline. - He has had increased SOB and LE edema since his transfusion. - Workup in the ED revealed BNP 648, pt was hypoxic on RA at 88% which improved with supplemental O2. - CXR revealed findings consistent with CHF. - LE US was negative for DVT. - 2D echo (01/05) --> estimated EF 50%, possible moderate basal inferior and basal posterior hypokinesis, trace aortic regurgitation, moderate mitral regurgitation, LA mildly dilated , RA mildly dilated, mild- moderate tricuspid regurgitation. - Telemetry with A. vida with maico in the 40's during the day and nurse reports into the 30's when he's sleeping. Pt is not on any BB -Pt developed hyun and dehydration with diuresis -delirium is likely related to hyun. but need to exclude infection right shoulder -right shoulder pain/tenderness/swelling...r/o infection, tear, dvt, etc....ct scan no contrast concerning for gas in shoulder..?abscess.. mri was recommeneded -s/pr 400cc thoracentesis on right 01/12 hold diuretic gentle ivf. poor po intake and hyun mri right shoulder per radiology recc to f/u abn ct will ask for ortho eval for possible septic shoulder. he did have fever a few days ago and started emperically on abx. cont emperic abx - If stablilizes from pulmonary/neuro/renal standpt will d/c to snf family says he wants dnr (2) Shoulder pain Status: Acute Plan: see above (3) HYUN (acute kidney injury) Status: Acute Plan: see above (4) Delirium Status: Acute Plan: see above (5) Chronic anemia Status: Chronic Plan: - As above. - Labs are stable currently. - Monitor (6) Atrial fibrillation Status: Chronic Plan: - Pt developed RVR. has had dilt and dig. off meds. now. - Hold Coumadin today --> continue to hold coumadin, repeat INR in AM - Telemetry Problem Qualifiers (1) CHF exacerbation: Qualified Code: I50.9 - Acute on chronic congestive heart failure, unspecified congestive heart failure type Robert,Bradley L MD Jan 13, 2017 09:42
[2017-01-13] MEDS: PIPERACIL-TAZO 2.25 GM PREMIX 50 ML IV SCH ×2 (12:06→17:24)
--- NOTE | 2017-01-13 12:31 | RADRPT ---
EXAM DATE/TIME: 01/13/2017 11:22 [facility] COMPARISON: No previous studies available for comparison. INDICATIONS : Fall, pain with motion, bruising, swelling right shoulder. MEDICAL HISTORY : Hypercholesterolemia. Hypertension A-FIB, Prostate CA SURGICAL HISTORY : Total knee replacement, right. Colon resection. ENCOUNTER: Initial ACUITY: 1 day PAIN SCORE: 7/10 LOCATION: Right shoulder FINDINGS: 4 views right shoulder. Moderate severity hypertrophic change of the acromioclavicular joint. Bone al ignment within normal limits. No evidence of fracture. CONCLUSION: No evidence of fracture. Prominent acromioclavicular joint arthrosis. Jose Osuna MD on January 13, 2017 at 12:27 Board Certified Radiologist. This report was verified electronically.
[2017-01-13 13:53] LABS: BICARBONATE 37.1 MEQ/L (21.0-32.0); POTASSIUM 3.2 MEQ/L (3.5-5.1)
[2017-01-13] MEDS ORDERED: POTASSIUM CHLORIDE 20 MEQ CONTROLLED RELEASE TAB PO ONE (15:30)
[2017-01-13] MEDS ORDERED: 1/2 NS + KCL 20 MEQ INJ 1,000 ML IV SCH (16:00)
--- NOTE | 2017-01-13 18:08 | RADRPT ---
EXAM DATE/TIME: 01/13/2017 16:02 [facility] COMPARISON: No previous studies available for comparison. INDICATIONS : Abscess. CONTRAST: 15 cc Omniscan (gadodiamide) IV MEDICAL HISTORY : Carcinoma, prostate. Renal insufficiency, chronic. SURGICAL HISTORY : CABG Colon resection. Prostatectomy. ENCOUNTER: Initial ACUITY: 1 week PAIN SCORE: 4/10 LOCATION: Right arm TECHNIQUE: Multiplanar multisequence MRI examination of the humerus was performed with and without contrast. FINDINGS: Diffuse superficial soft tissue edema of the upper arm. Elongated peripherally enhancing fluid collec tion is seen in the lateral deltoid muscle belly measuring 4.4 x 4.2 cm in axial dimensions and 9.9 c m in craniocaudal dimension elongated peripherally enhancing fluid collection within the supraspinatu s muscle measures 6.5 x 2.9 cm in axial dimensions and 3.9 cm in craniocaudal dimension. Markedly dis tended subacromial subdeltoid bursa with peripheral enhancement. This examination is not tailored for evaluation of the rotator cuff tendons but there is evidence of a full thickness supraspinatus tendon tear measuring 2.6 cm in medial to lateral dimension. Severe acromioclavicular joint arthrosis. Large acromioclavicular joint effusion. Moderate sized abhinav ohumeral joint effusion. Diffuse edema and enhancement of all of the rotator cuff muscles. Retracted proximal biceps tendon tear. Impingement type change of the proximal humerus. No evidence of focal bone erosion. No evidence of os teomyelitis. CONCLUSION: 1. Ill-defined edema involving the deltoid muscle and muscles of the rotator cuff. Loculated peripher ally enhancing fluid collections involving the lateral deltoid muscle and the supraspinatus muscle. T hese findings may represent abscess or non-infectious inflammatory fluid collections. Prominent subac romial subdeltoid bursitis with peripheral enhancement as well. No evidence of osteomyelitis. 2. Full-thickness supraspinatus tendon tear. 3. Severe acromioclavicular joint arthrosis. 4. Retracted proximal biceps tendon tear. Jose Osuna MD on January 13, 2017 at 17:55 Board Certified Radiologist. This report was verified electronically.
[2017-01-13] MEDS ORDERED: GADODIAMIDE PF 287 MG/ML 20 ML VIAL (for RAD MRI) IV ONE (19:24)
[2017-01-13] MEDS: PRAVASTATIN SOD 80 MG TAB PO SCH (21:23)
[2017-01-13] MEDS: TERAZOSIN HCL 5 MG CAP PO SCH (21:23)
[2017-01-14] VITALS (7 sets, daily range): BP systolic 105–129; BP diastolic 57–63; PULSE 70–94; RESP 18–22; TEMP 97.3–98.6; O2SAT 92–98
[2017-01-14] MEDS: PIPERACIL-TAZO 2.25 GM PREMIX 50 ML IV SCH ×4 (03:05→22:34)
[2017-01-14 05:28] LABS: BODY FLUID LDH 121 U/L (()); BODY FLUID LDH SOURCE Pleural (())
[2017-01-14 07:49] LABS: BICARBONATE 38.2 MEQ/L (21.0-32.0); POTASSIUM 3.6 MEQ/L (3.5-5.1)
[2017-01-14] MEDS: OXYBUTYNIN CHLORIDE 5 MG TAB PO SCH ×2 (08:44→20:48)
[2017-01-14] MEDS: ASPIRIN EC 81 MG TABEC PO SCH (08:44)
[2017-01-14] MEDS: TIMOLOL MALEATE 0.5% OPHT SOLN 5 ML BTL EACH EYE SCH (08:45)
[2017-01-14] MEDS: SODIUM CHLORIDE 0.9% FLUSH 10 ML FLUSH IV FLUSH SCH ×2 (08:45→20:47)
--- NOTE | 2017-01-14 08:58 | HHI.PR ---
Subjective Remarks confused. trying to eat with nursing Objective Vitals confused right arm in sling and elevated rights shoulder less swollen/red no lower ext edema Vital Signs Date Time Temp Pulse Resp B/P Pulse Ox O2 Delivery O2 Flow Rate FiO2 01/14/17 04:00 98.6 81 18 120/57 98 01/13/17 23:20 98.7 77 18 130/63 97 01/13/17 22:36 96 Nasal Cannula 4.00 01/13/17 20:00 99.5 76 18 110/58 96 01/13/17 20:00 Nasal Cannula 2.00 01/13/17 16:00 99.8 70 20 114/62 97 01/13/17 14:00 100.2 83 22 128/62 95 01/13/17 11:19 Nasal Cannula 2.00 01/13/17 01/13/17 01/14/17 15:00 23:00 07:00 Intake Total 240 ml 949 ml 423 ml Balance 240 ml 949 ml 423 ml Intake Oral 240 ml 0 ml 120 ml IV Total 949 ml 303 ml # Voids 2 3 6 # Bowel Movements 0 0 0 Result Diagram: 01/10/17 0815 01/14/17 0621 Imaging Last Impressions Lower Extremity Ultrasound 01/05/17 0000 Signed Impressions: Service Date/Time: December 10:27 - CONCLUSION: Normal examination. Db Melchor MD Chest X-Ray 01/05/17 0000 Signed Impressions: Service Date/Time: December 10:15 - CONCLUSION: CHF Db Melchor MD A/P Problem List: (1) CHF exacerbation Status: Acute Plan: - Pt admitted with complaints of worsening SOB and LE edema. - Pt had recently received a blood transfusion as his Hgb/Hct on 12/26/16 as an outpt was notably decreased to 7.9/25.3. - Following the blood transfusion on 12/30 his H/H has increased to 9.4/29.4 which is about his baseline. - He has had increased SOB and LE edema since his transfusion. - Workup in the ED revealed BNP 648, pt was hypoxic on RA at 88% which improved with supplemental O2. - CXR revealed findings consistent with CHF. - LE US was negative for DVT. - 2D echo (5/25) --> estimated EF 50%, possible moderate basal inferior and basal posterior hypokinesis, trace aortic regurgitation, moderate mitral regurgitation, LA mildly dilated , RA mildly dilated, mild- moderate tricuspid regurgitation. - Telemetry with A. fib with maico in the 40's during the day and nurse reports into the 30's when he's sleeping. Pt is not on any BB -Pt developed hyun/hypernatremia and dehydration with diuresis and poor po intake -delirium is likely related multifactorial...hyun/na/infection/underlying cognitive deficits -right shoulder pain/tenderness/swelling.....ct scan no contrast concerning for gas in shoulder..?abscess.. mri ...?infection/trauma...supraspinatous tear -s/pr 400cc thoracentesis on right 01/12 hold diuretic gentle ivf. change to d5w....poor po intake ..assist with po ortho eval for possible septic shoulder. he did have fever a few days ago and started emperically on abx. cont emperic abx If stablilizes from pulmonary/neuro/renal standpt will d/c to snf family says he wants dnr (2) Shoulder pain Status: Acute Plan: see above (3) HYUN (acute kidney injury) Status: Acute Plan: see above (4) Delirium Status: Acute Plan: see above (5) Chronic anemia Status: Chronic Plan: - As above. - Labs are stable currently. - Monitor (6) Atrial fibrillation Status: Chronic Plan: - Pt developed RVR. has had dilt and dig. off meds. now. - Hold Coumadin today --> continue to hold coumadin, repeat INR in AM - Telemetry Problem Qualifiers (1) CHF exacerbation: Qualified Code: I50.9 - Acute on chronic congestive heart failure, unspecified congestive heart failure type Bradley Jones MD Jan 14, 2017 08:58
[2017-01-14] MEDS: ENOXAPARIN SODIUM 30 MG/0.3 ML SYRINGE SQ SCH (11:14)
--- NOTE | 2017-01-14 16:30 | PD.CONS ---
cc: Bradley Lovett MD [facility] Service Orthopedic Surgeons Consult Requested By Dr. Jones Reason for Consult Evaluation for possible septic right shoulder Primary Care Physician Janki Whitfield MD Admission Diagnosis chf exacerbation Diagnoses: (1) CHF exacerbation (2) Shoulder pain (3) HYUN (acute kidney injury) (4) Delirium (5) Chronic anemia (6) Atrial fibrillation Chief Complaint: Shortness of breath, right shoulder pain History of Present Illness Mr. Lopez is a pleasant 89 y/o WM with atrial fibrillation on chronic anticoagulation with Coumadin, chronic anemia, hx of prostate cancer and hx of large cell lymphoma in 2004. Pt was brought to the ED on 01/05/17 with worsening LE edema and reported SOB. Pt is somewhat of a poor historian and it is difficult to obtain information from him. Pts was reportedly concerned about his increasing LE edema. Pt had recently received a blood transfusion as his Hgb/Hct on 12/26/16 as an outpt was notably decreased to 7.9/25.3. Following the blood transfusion on 12/30 his H/H has increased to 9.4/29.4 which is about his baseline. He has had increased SOB and LE edema since his transfusion. Workup in the ED revealed BNP 648, pt was hypoxic on RA at 88% which improved with supplemental O2. CXR revealed findings consistent with CHF. LE US was negative for DVT. Pt was given Lasix 20mg IV in the ED. Since his admission the patient has been treated primarily for an exacerbation of CHF and his HYUN. Upon further review of the record the patient apparently fell prior to his admission and was having increased shoulder pain. Patient has been noted to have swelling of the shoulder and right upper extremity. A CT scan was completed on 01/12/17 which revealed fluid collection in the deltoid and supraspinatus regions with an associated rotator cuff tear. The question was raised with regards to possible abscess. Orthopedic consultation was therefore requested. Review of Systems Reviewed and well outlined in the medical record Past Family Social History Past Medical History By records Arthritis: Yes Asthma: No Atrial Fibrillation: Yes Autoimmune Disease: No Blood Disorders: No Cancer: Yes (COLON, PROSTATE) Cardiovascular Problems: Yes (CABG) High Cholesterol: Yes Chemotherapy: Yes COPD: No Diabetes: No Endocrine: No Genitourinary: Yes ( PROSTATE CA) Hepatitis: No Hiatal Hernia: No Hypertension: Yes Immune Disorder: No Implanted Vascular Access Dvce: Yes Musculoskeletal: Yes Neurologic: No Psychiatric: No Reproductive: No Respiratory: No Thyroid Disease: No Past Surgical History Narrative Surgical By records Abdominal Surgery: Yes (COLON RESECTION) Cardiac Surgery: Yes (CABG) Ear Surgery: No Endocrine Surgery: No Eye Surgery: Yes (PADMINI. CATARACT EXTRACT.) Genitourinary Surgery: No Gynecologic Surgery: No Joint Replacement: Yes (RIGHT KNEE) Oral Surgery: No Pacemaker: No Thoracic Surgery: No Other Surgery: Yes Social History Narrative Social History By records Alcohol Use: Yes (RARELY) Tobacco Use: No Substance Use: No Allergies-Medications (Allergen,Severity, Reaction): Coded Allergies: No Known Allergies (Verified , 07/01/11) Reported Meds & Prescriptions Reported Meds & Active Scripts Active Review of Systems Except as stated in HPI: all other systems reviewed are Neg Allergies: Coded Allergies: No Known Allergies (Verified , 07/01/11) Active Ordered Medications Current Medications Medications (Trade) Dose Ordered Sig/Chandrika Route Start Time Stop Time Status Last Admin (NS Flush) 2 ml UNSCH PRN IV FLUSH 01/05/17 13:00 (NS Flush) 2 ml BID IV FLUSH 01/05/17 21:00 01/13/17 08:43 (Tylenol) 650 mg Q4H PRN PO 01/05/17 13:00 01/10/17 00:50 (Zofran Inj) 4 mg Q6H PRN IVP 01/05/17 13:00 (Restoril) 15 mg HS PRN PO 01/05/17 21:00 (Narcan Inj) 0.4 mg UNSCH PRN IV 01/05/17 13:00 (Milk Of Magnesia Liq) 30 ml Q12H PRN PO 01/05/17 13:00 (Ecotrin Ec) 81 mg DAILY PO 01/06/17 09:00 01/14/17 08:44 (Hytrin) 10 mg HS PO 01/05/17 21:00 01/13/17 21:23 (Timoptic 0.5% Opth Soln) 1 drop DAILY EACH EYE 01/05/17 16:45 01/14/17 08:45 (Ditropan) 15 mg BID PO 01/05/17 21:00 01/14/17 08:44 Pravastatin Sodium 80 mg 80 mg HS PO 01/05/17 21:00 01/13/17 21:23 (D5W + KCl 20 Meq Inj) 1,000 ml @ 50 mls/hr Q20H IV 01/14/17 09:00 Enoxaparin Sodium 30 mg 30 mg Q24H SQ 01/14/17 11:00 01/14/17 11:14 (Zosyn 2.25 Gm Premix) 50 ml @ 100 mls/hr Q6H IV 01/14/17 16:00 01/14/17 15:54 Reported Meds & Active Scripts Active Reported Dunlo Nasal Sully (Sodium Chloride) 0.65% Sully 1-2 Sully EACH NARE DIRECTED PRN Multi Vitamin Daily (Multiple Vitamin) 1 Tab Tab 1 Tab PO DAILY Oxybutynin ER 24 HR (Oxybutynin Chloride) 15 Mg Tab 15 Mg PO BID Terazosin (Terazosin HCl) 10 Mg Cap 10 Mg PO HS Calcium 500 +D (Calcium Carbonate-Cholecalciferol) 500-400 Mg-Unit Tab 1 Tab PO BID Aspir-81 (Aspirin) 81 Mg Tabdr 81 Mg PO DAILY Timoptic Opth Drops (Timolol Opth Drops) 0.5 % Soln 1 Drop EACH EYE DAILY Flonase Nasal Sully (Fluticasone Nasal Sully) 50 Mcg/Act Sully 2 Sully EACH NARE HS PRN Simvastatin 80 Mg Tab 80 Mg PO HS Bicalutamide 50 Mg Tab 50 Mg PO DAILY Hazardous agent; use appropriate precautions for handling & disposal. Warfarin 3 Mg Tab 3 Mg PO HS Physical Exam Vital Signs Vital Signs Date Time Temp Pulse Resp B/P Pulse Ox O2 Delivery O2 Flow Rate FiO2 01/14/17 12:00 98.2 72 20 129/62 95 01/14/17 08:35 Nasal Cannula 4.00 01/14/17 08:00 98.6 75 20 125/60 96 01/14/17 08:00 86 01/14/17 04:00 98.6 81 18 120/57 98 01/13/17 23:20 98.7 77 18 130/63 97 01/13/17 22:36 96 Nasal Cannula 4.00 6/2/17 20:00 99.5 76 18 110/58 96 01/13/17 20:00 Nasal Cannula 2.00 Physical Exam The patient is pleasant and mildly confused. He is seen with my PA who evaluated the shoulder yesterday and states it is much less swollen today. He currently is elevated in a sling from an IV pole. There is swelling primarily over the lateral deltoid and medial upper arm. There is slight induration laterally but no increased warmth or erythema. There is no fluctuance. He has no significant swelling distally. He has no pain with active and passive range of motion of the wrist or fingers. He has good capillary refill and sensation. There is only mild discomfort with passive range of motion of the shoulder. He does have decreased active mobility. Laboratory Laboratory Tests Test 01/14/17 06:21 Sodium Level 152 Potassium Level 3.6 Chloride Level 111 Carbon Dioxide Level 38.2 Anion Gap 3 Blood Urea Nitrogen 51 Creatinine 1.34 Estimat Glomerular Filtration 50 Rate Random Glucose 134 Calcium Level 9.1 Date/Time Procedure Status Source Growth 01/12/17 14:00 Gram Stain - Final Resulted Fluid Pleural Fluid 01/12/17 14:00 Body Fluid Culture - Preliminary Resulted Fluid Pleural Fluid NO GROWTH IN 48 HOURS. Result Diagram: 01/10/17 0815 01/14/17 0621 Imaging Last 72 hours Impressions Upper Extremity MRI 01/13/17 0000 Signed Impressions: Service Date/Time: Friday, January 13, 2017 16:02 - CONCLUSION: 1. Ill-defined edema involving the deltoid muscle and muscles of the rotator cuff. Loculated peripherally enhancing fluid collections involving the lateral deltoid muscle and the supraspinatus muscle. These findings may represent abscess or non-infectious inflammatory fluid collections. Prominent subacromial subdeltoid bursitis with peripheral enhancement as well. No evidence of osteomyelitis. 2. Full-thickness supraspinatus tendon tear. 3. Severe acromioclavicular joint arthrosis. 4. Retracted proximal biceps tendon tear. Jose Osuna MD Shoulder X-Ray 01/13/17 0000 Signed Impressions: Service Date/Time: Friday, January 13, 2017 11:22 - CONCLUSION: No evidence of fracture. Prominent acromioclavicular joint arthrosis. Jose Osuna MD Thoracentesis Ultrasound 01/12/17 0600 Signed Impressions: Service Date/Time: January 15:18 - CONCLUSION: Uncomplicated ultrasound guided thoracentesis. Db Werner MD Upper Extremity Ultrasound 01/12/17 0000 Signed Impressions: Service Date/Time: January 18:51 - CONCLUSION: Normal examination. Valerio Arias Jr., MD Upper Extremity CT 01/12/17 0000 Signed Impressions: Service Date/Time: January 16:31 - CONCLUSION: 1. Rounded areas of gas and fluid in the lateral deltoid muscle and the supraspinatus muscle. Prominent surrounding edema. Findings are suspicious for abscess in the proper clinical setting. Recommend MRI or CT humerus with contrast if possible to better define the possible fluid collections. Scan should include field-of- view from shoulder to at least mid humerus shaft. 2. Moderate acromioclavicular joint arthrosis. 3. Mild to moderate glenohumeral joint arthrosis and prominent glenohumeral joint effusion. Jose Osuna MD Chest X-Ray 01/12/17 0000 Signed Impressions: Service Date/Time: January 16:00 - CONCLUSION: No pneumothorax is visualized following recent right thoracentesis. Db Werner MD Assessment & Plan Problem List: (1) Atrial fibrillation (2) CHF exacerbation (3) Chronic anemia (4) Delirium (5) Shoulder pain Plan: Diffuse inflammation, rotator cuff tear, possible hematoma. Clinically not consistent with an abscess. (6) HYUN (acute kidney injury) Assessment and Plan The findings were discussed. The radiographic studies were reviewed. Although the patient does have a fluid collection on his MRI clinically it does not appear to be septic. He is afebrile with a normal white blood cell count. There is noted improvement since yesterday. Recommendations therefore the present time or for continuing the present course of management. If his symptoms change or worsen consideration will be for aspiration and or surgical management. We will follow the patient with you. He can begin active and passive range of motion to tolerance. Bradley Lovett MD Jan 14, 2017 16:30
[2017-01-14] MEDS: TERAZOSIN HCL 5 MG CAP PO SCH (20:47)
[2017-01-14] MEDS: TEMAZEPAM 15 MG CAP PO PRN (20:47)
[2017-01-14] MEDS: PRAVASTATIN SOD 80 MG TAB PO SCH (20:47)
[2017-01-15] VITALS (10 sets, daily range): BP systolic 106–123; BP diastolic 55–65; PULSE 70–85; RESP 18–20; TEMP 97.9–98.5; O2SAT 92–98
[2017-01-15] MEDS: PIPERACIL-TAZO 2.25 GM PREMIX 50 ML IV SCH ×4 (03:37→21:40)
[2017-01-15 08:41] LABS: INTERNATIONAL NORMALIZED RATIO 1.3 RATIO
[2017-01-15 08:50] LABS: BICARBONATE 36.8 MEQ/L (21.0-32.0)
[2017-01-15] MEDS: SODIUM CHLORIDE 0.9% FLUSH 10 ML FLUSH IV FLUSH SCH ×2 (09:00→20:19)
--- NOTE | 2017-01-15 09:29 | HHI.PR ---
Subjective Remarks confused. no verbal response. Objective Vitals confused. just moans mouth open and dry. heart reg lung course bs abd s/nt ext no edema Vital Signs Date Time Temp Pulse Resp B/P Pulse Ox O2 Delivery O2 Flow Rate FiO2 01/15/17 08:20 Nasal Cannula 4.00 01/15/17 08:00 97.9 81 20 122/61 94 01/15/17 07:52 92 Nasal Cannula 4.00 01/15/17 04:00 98.3 76 18 120/58 94 01/15/17 04:00 Nasal Cannula 4.00 01/15/17 00:00 Nasal Cannula 4.00 01/15/17 00:00 98.4 74 18 123/65 95 01/14/17 21:35 92 Nasal Cannula 4.00 01/14/17 20:00 Nasal Cannula 4.00 01/14/17 20:00 70 01/14/17 20:00 97.3 76 22 93 122/58 01/14/17 16:00 98.2 94 20 105/63 94 01/14/17 12:00 98.2 72 20 129/62 95 01/14/17 10:48 95 Nasal Cannula 4.00 01/14/17 01/14/17 01/15/17 15:00 23:00 07:00 Intake Total 306 ml 459 ml 472 ml Balance 306 ml 459 ml 472 ml Intake Oral 120 ml 120 ml IV Total 186 ml 339 ml 472 ml # Voids 1 1 4 # Bowel Movements 0 Result Diagram: 01/15/17 0722 Imaging Last Impressions Lower Extremity Ultrasound 01/05/17 0000 Signed Impressions: Service Date/Time: December 10:27 - CONCLUSION: Normal examination. Db Melchor MD Chest X-Ray 01/05/17 0000 Signed Impressions: Service Date/Time: December 10:15 - CONCLUSION: CHF Db Melchor MD A/P Problem List: (1) CHF exacerbation Status: Acute Plan: - Pt admitted with complaints of worsening SOB and LE edema. - Pt had recently received a blood transfusion as his Hgb/Hct on 12/26/16 as an outpt was notably decreased to 7.9/25.3. - Following the blood transfusion on 12/30 his H/H has increased to 9.4/29.4 which is about his baseline. - He has had increased SOB and LE edema since his transfusion. - Workup in the ED revealed BNP 648, pt was hypoxic on RA at 88% which improved with supplemental O2. - CXR revealed findings consistent with CHF. - LE US was negative for DVT. - 2D echo (01/05) --> estimated EF 50%, possible moderate basal inferior and basal posterior hypokinesis, trace aortic regurgitation, moderate mitral regurgitation, LA mildly dilated , RA mildly dilated, mild- moderate tricuspid regurgitation. - Telemetry with A. fib with maico in the 40's during the day and nurse reports into the 30's when he's sleeping. Pt is not on any BB -Pt developed hyun/hypernatremia and dehydration with diuresis and poor po intake -delirium is likely related multifactorial...hyun/na/infection/underlying cognitive deficits -right shoulder pain/tenderness/swelling.....ct scan no contrast concerning for gas in shoulder..?abscess.. mri ...?infection/trauma...supraspinatous tear -s/pr 400cc thoracentesis on right 01/12 hold diuretic gentle ivf. change to d5w....poor po intake ..assist with po s/p ortho eval who feels shoulder pain more trauma related. fever down with abx. overall pt continues to decline. RN says he ate some with family yesterday..but at present pt lethargic and not following commands. Looks to be dieing....If no improvement later today I think a hospice conversation would be appropriate. If stablilizes from pulmonary/neuro/renal standpt will d/c to snf family says he wants dnr (2) Shoulder pain Status: Acute Plan: see above (3) HYUN (acute kidney injury) Status: Acute Plan: see above (4) Delirium Status: Acute Plan: see above (5) Chronic anemia Status: Chronic Plan: - As above. - Labs are stable currently. - Monitor (6) Atrial fibrillation Status: Chronic Plan: - Pt developed RVR. has had dilt and dig. off meds. now. - Hold Coumadin today --> continue to hold coumadin, repeat INR in AM - Telemetry Problem Qualifiers (1) CHF exacerbation: Qualified Code: I50.9 - Acute on chronic congestive heart failure, unspecified congestive heart failure type Bradley Jones MD Jan 15, 2017 09:29
[2017-01-15] MEDS: ASPIRIN EC 81 MG TABEC PO SCH (09:46)
[2017-01-15] MEDS: D5W + KCL 20 MEQ INJ 1,000 ML IV SCH (09:46)
[2017-01-15] MEDS: OXYBUTYNIN CHLORIDE 5 MG TAB PO SCH ×2 (09:46→20:19)
[2017-01-15] MEDS: TIMOLOL MALEATE 0.5% OPHT SOLN 5 ML BTL EACH EYE SCH (09:46)
[2017-01-15] MEDS: ENOXAPARIN SODIUM 30 MG/0.3 ML SYRINGE SQ SCH (11:22)
[2017-01-15] MEDS: PRAVASTATIN SOD 80 MG TAB PO SCH (20:18)
[2017-01-15] MEDS: TEMAZEPAM 15 MG CAP PO PRN (20:19)
[2017-01-15] MEDS: TERAZOSIN HCL 5 MG CAP PO SCH (20:19)
[2017-01-16] VITALS (7 sets, daily range): BP systolic 108–123; BP diastolic 51–59; PULSE 68–95; RESP 20–22; TEMP 97.3–99.8; O2SAT 90–99
[2017-01-16] MEDS: D5W + KCL 20 MEQ INJ 1,000 ML IV SCH (02:14)
[2017-01-16] MEDS: PIPERACIL-TAZO 2.25 GM PREMIX 50 ML IV SCH ×2 (03:41→09:06)
--- NOTE | 2017-01-16 07:49 | PD.ORT.PN ---
Subjective Subjective Remarks The patient is lethargic but arousable. Above notes reviewed. No obvious new issues regarding right upper extremity. Objective Vitals Vital Signs Date Time Temp Pulse Resp B/P Pulse Ox O2 Delivery O2 Flow Rate FiO2 01/16/17 04:00 98.4 82 20 116/51 94 01/16/17 00:00 98.4 72 20 120/56 94 01/15/17 21:17 93 Nasal Cannula 4.00 01/15/17 20:02 77 01/15/17 20:00 Nasal Cannula 4.00 01/15/17 20:00 98.1 85 20 119/62 98 01/15/17 16:00 Nasal Cannula 4.00 01/15/17 16:00 98.2 71 20 112/57 93 01/15/17 12:00 Nasal Cannula 4.00 01/15/17 12:00 98.5 72 20 106/55 94 01/15/17 08:20 Nasal Cannula 4.00 01/15/17 08:04 70 01/15/17 08:00 97.9 81 20 122/61 94 01/15/17 07:52 92 Nasal Cannula 4.00 I/O 01/15/17 01/15/17 01/15/17 01/16/17 01/16/17 01/16/17 07:00 15:00 23:00 07:00 15:00 23:00 Intake Total 472 ml 411 ml 398 ml 471 ml Balance 472 ml 411 ml 398 ml 471 ml Intake Oral 0 ml 0 ml 0 ml IV Total 472 ml 411 ml 398 ml 471 ml # Voids 4 1 2 2 # Bowel Movements 0 0 0 Result Diagram: 01/15/17 0722 Objective Remarks The patient's right shoulder is much less swollen. There is no erythema. There is wrinkling of the skin. His right upper extremity is in the elevated sling but seems to be impinging on the elbow and wrist. The examination is limited however he does have some discomfort with passive range of motion. Assessment & Plan Problem List: (1) Atrial fibrillation (2) CHF exacerbation (3) Chronic anemia (4) Delirium (5) Shoulder pain Plan: Diffuse inflammation, rotator cuff tear, possible hematoma. Clinically not consistent with an abscess. (6) HYUN (acute kidney injury) Assessment and Plan The patient's orthopedic status is stable. His right upper extremity exam is much improved. It is noted however his overall prognosis appears guarded. Recommendation is to discontinue use of the sling for elevation. Will follow as needed. Bradley Lovett MD Jan 16, 2017 07:49
[2017-01-16] MEDS: SODIUM CHLORIDE 0.9% FLUSH 10 ML FLUSH IV FLUSH SCH ×2 (09:00→21:19)
[2017-01-16] MEDS: TIMOLOL MALEATE 0.5% OPHT SOLN 5 ML BTL EACH EYE SCH (09:06)
[2017-01-16] MEDS: ASPIRIN EC 81 MG TABEC PO SCH (09:06)
[2017-01-16] MEDS: OXYBUTYNIN CHLORIDE 5 MG TAB PO SCH (09:06)
[2017-01-16] MEDS: ENOXAPARIN SODIUM 30 MG/0.3 ML SYRINGE SQ SCH (10:53)
--- NOTE | 2017-01-16 15:44 | HHI.PR ---
Subjective Remarks Pt able to give his name. Pt otherwise answering only yes/no to my questions. Pt NOT eating. Objective Vitals Vital Signs Date Time Temp Pulse Resp B/P Pulse Ox O2 Delivery O2 Flow Rate FiO2 01/16/17 12:00 99.1 95 20 116/58 90 01/16/17 11:37 93 Nasal Cannula 4.00 01/16/17 08:00 98.3 80 20 123/59 99 01/16/17 08:00 Nasal Cannula 4.00 01/16/17 04:00 98.4 82 20 116/51 94 01/16/17 00:00 98.4 72 20 120/56 94 01/15/17 21:17 93 Nasal Cannula 4.00 01/15/17 20:02 77 01/15/17 20:00 Nasal Cannula 4.00 01/15/17 20:00 98.1 85 20 119/62 98 01/15/17 16:00 Nasal Cannula 4.00 01/15/17 16:00 98.2 71 20 112/57 93 01/15/17 01/15/17 01/16/17 15:00 23:00 07:00 Intake Total 411 ml 398 ml 471 ml Balance 411 ml 398 ml 471 ml Intake Oral 0 ml 0 ml 0 ml IV Total 411 ml 398 ml 471 ml # Voids 1 2 2 # Bowel Movements 0 0 0 Result Diagram: 01/15/17 0722 Imaging Last Impressions Lower Extremity Ultrasound 01/05/17 0000 Signed Impressions: Service Date/Time: December 10:27 - CONCLUSION: Normal examination. Db Melchor MD Chest X-Ray 01/05/17 0000 Signed Impressions: Service Date/Time: December 10:15 - CONCLUSION: CHF Db Melchor MD Objective Remarks GENERAL: NAD CARDIOVASCULAR: Regular rate and rhythm without murmurs, gallops, or rubs. RESPIRATORY: Clear to auscultation. Breath sounds equal bilaterally. No wheezes , rales, or rhonchi. GASTROINTESTINAL: Abdomen soft, non-tender, nondistended. Normal active bowel sounds MUSCULOSKELETAL: Extremities without clubbing, cyanosis, or edema. NEURO: pt can give his name. Pt does NOT answer questions appropriately for me. A/P Problem List: (1) CHF exacerbation Status: Acute Plan: - Pt is actively dying - Case d/w pt's and son by phone - Pt already DNR - /son wish to transition to comfort care - morphine prn pain or agitation - Consult hospice Problem Qualifiers (1) CHF exacerbation: Qualified Code: I50.9 - Acute on chronic congestive heart failure, unspecified congestive heart failure type Angel Collins DO Jan 16, 2017 15:44
[2017-01-16] MEDS: MORPHINE SULFATE 4 MG/ML INJ IV PUSH PRN ×2 (16:23→21:20)
[2017-01-17] VITALS: BP 111/57; PULSE 95; RESP 20; TEMP 97.2; O2SAT 80
[2017-01-17 05:51] VITALS: BP 110/52; PULSE 76; RESP 20; TEMP 97.2; O2SAT 94
[2017-01-17 08:00] VITALS: BP 124/56; PULSE 85; RESP 20; TEMP 101.1; O2SAT 92
[2017-01-17] MEDS: SODIUM CHLORIDE 0.9% FLUSH 10 ML FLUSH IV FLUSH SCH (10:06)
[2017-01-17] MEDS ORDERED: MORP4INJ3 IV PUSH (10:18)
--- NOTE | 2017-01-17 10:28 | HHI.DS ---
Discharge Summary Admission Date January 05, 2017 at 12:42 Discharge Date: Jan 17, 2017 Admitting Diagnosis chf exacerbation (1) CHF exacerbation Diagnosis: Principal (2) Shoulder pain Diagnosis: Principal (3) Atrial fibrillation Diagnosis: Secondary (4) Chronic anemia Diagnosis: Secondary (5) HYUN (acute kidney injury) Diagnosis: Secondary Brief History Mr. Lopez is a pleasant 89 y/o WM with atrial fibrillation on chronic anticoagulation with Coumadin, chronic anemia, hx of prostate cancer and hx of large cell lymphoma in 2004. Pt was brought to the ED on 01/05/17 with worsening LE edema and reported SOB. Pt is somewhat of a poor historian and it is difficult to obtain information from him. Pts was reportedly concerned about his increasing LE edema. Pt had recently received a blood transfusion as his Hgb/Hct on 12/26/16 as an outpt was notably decreased to 7.9/25.3. Following the blood transfusion on 12/30 his H/H has increased to 9.4/29.4 which is about his baseline. He has had increased SOB and LE edema since his transfusion. Workup in the ED revealed BNP 648, pt was hypoxic on RA at 88% which improved with supplemental O2. CXR revealed findings consistent with CHF. LE US was negative for DVT. Pt was given Lasix 20mg IV in the ED. CBC/BMP: 01/15/17 0722 Significant Findings Laboratory Tests Test 01/15/17 07:22 Prothrombin Time 14.0 SEC (9.8-11.6) Sodium Level 151 MEQ/L (136-145) Chloride Level 112 MEQ/L (98-107) Carbon Dioxide Level 36.8 MEQ/L (21.0-32.0) Anion Gap 2 MEQ/L (5-15) Blood Urea Nitrogen 46 MG/DL (7-18) Estimat Glomerular Filtration 53 ML/MIN (>89) Rate Random Glucose 155 MG/DL (74-106) Imaging Last Impressions Upper Extremity MRI 01/13/17 0000 Signed Impressions: Service Date/Time: Friday, January 13, 2017 16:02 - CONCLUSION: 1. Ill-defined edema involving the deltoid muscle and muscles of the rotator cuff. Loculated peripherally enhancing fluid collections involving the lateral deltoid muscle and the supraspinatus muscle. These findings may represent abscess or non-infectious inflammatory fluid collections. Prominent subacromial subdeltoid bursitis with peripheral enhancement as well. No evidence of osteomyelitis. 2. Full-thickness supraspinatus tendon tear. 3. Severe acromioclavicular joint arthrosis. 4. Retracted proximal biceps tendon tear. Jose Osuna MD Shoulder X-Ray 01/13/17 0000 Signed Impressions: Service Date/Time: Friday, January 13, 2017 11:22 - CONCLUSION: No evidence of fracture. Prominent acromioclavicular joint arthrosis. Jose Osuna MD Thoracentesis Ultrasound 01/12/17 0600 Signed Impressions: Service Date/Time: January 15:18 - CONCLUSION: Uncomplicated ultrasound guided thoracentesis. Db Werner MD Upper Extremity Ultrasound 01/12/17 0000 Signed Impressions: Service Date/Time: January 18:51 - CONCLUSION: Normal examination. Valerio Arias Jr., MD Upper Extremity CT 01/12/17 0000 Signed Impressions: Service Date/Time: January 16:31 - CONCLUSION: 1. Rounded areas of gas and fluid in the lateral deltoid muscle and the supraspinatus muscle. Prominent surrounding edema. Findings are suspicious for abscess in the proper clinical setting. Recommend MRI or CT humerus with contrast if possible to better define the possible fluid collections. Scan should include field-of- view from shoulder to at least mid humerus shaft. 2. Moderate acromioclavicular joint arthrosis. 3. Mild to moderate glenohumeral joint arthrosis and prominent glenohumeral joint effusion. Jose Osuna MD Chest X-Ray 01/12/17 0000 Signed Impressions: Service Date/Time: January 16:00 - CONCLUSION: No pneumothorax is visualized following recent right thoracentesis. Db Werner MD Chest CT 01/10/17 0000 Signed Impressions: Service Date/Time: Tuesday, January 10, 2017 10:14 - CONCLUSION: 1. Moderate right-sided pleural effusion. 2. Bibasilar atelectasis, right greater than left. 3. Pulmonary venous congestion versus edema.. Toni Orozco MD Abdomen X-Ray 01/09/17 0000 Signed Impressions: Service Date/Time: Monday, January 09, 2017 11:21 - CONCLUSION: 1. There is a nonobstructive bowel gas pattern. 2. Small right pleural effusion. Db Werner MD Lower Extremity Ultrasound 01/05/17 0000 Signed Impressions: Service Date/Time: December 10:27 - CONCLUSION: Normal examination. Db Melchor MD PE at Discharge GENERAL: NAD CARDIOVASCULAR: Regular rate and rhythm without murmurs, gallops, or rubs. RESPIRATORY: Clear to auscultation. Breath sounds equal bilaterally. No wheezes , rales, or rhonchi. GASTROINTESTINAL: Abdomen soft, non-tender, nondistended. Normal active bowel sounds MUSCULOSKELETAL: Extremities without clubbing, cyanosis, or edema. NEURO: Pt does NOT answer questions appropriately for me. Hospital Course (1) CHF exacerbation Status: Acute Plan: - Pt admitted with complaints of worsening SOB and LE edema. - Pt had recently received a blood transfusion as his Hgb/Hct on 12/26/16 as an outpt was notably decreased to 7.9/25.3. - Following the blood transfusion on 12/30 his H/H has increased to 9.4/29.4 which is about his baseline. - He has had increased SOB and LE edema since his transfusion. - Workup in the ED revealed BNP 648, pt was hypoxic on RA at 88% which improved with supplemental O2. - CXR revealed findings consistent with CHF. - LE US was negative for DVT. - 2D echo (01/05) --> estimated EF 50%, possible moderate basal inferior and basal posterior hypokinesis, trace aortic regurgitation, moderate mitral regurgitation, LA mildly dilated , RA mildly dilated, mild- moderate tricuspid regurgitation. - Telemetry with A. fib with maico in the 40's during the day and nurse reports into the 30's when he's sleeping. Pt is not on any BB -Pt developed hyun/hypernatremia and dehydration with diuresis and poor po intake -delirium is likely related multifactorial...hyun/na/infection/underlying cognitive deficits -right shoulder pain/tenderness/swelling.....ct scan no contrast concerning for gas in shoulder..?abscess.. mri ...?infection/trauma...supraspinatous tear -s/pr 400cc thoracentesis on right 01/12 - diuretics held - pt recieved gentle ivf which were changed to d5w....poor po intake ..assist with po - Pt had ortho eval. Orthopedist felt shoulder pain more trauma related. fever down with abx. - despite aggressive efforts as outlined above, pt continued to decline. - Pt noted to have poor PO intake. - Case discussed at length with pt's and son. - family elected for hospice. - Pt actively dying. - Pt will be discharged to hospice care center for symptom management. (2) Shoulder pain Status: Acute Plan: see above (3) HYUN (acute kidney injury) Status: Acute Plan: see above (4) Delirium Status: Acute Plan: see above (5) Chronic anemia Status: Chronic Plan: - As above. - Labs are stable currently. - Monitor (6) Atrial fibrillation - medications stopped - see above Pt Condition on Discharge: Deteriorating Discharge Disposition: Hospice/Med Facility Discharge Instructions DIET: Follow Instructions for: As Tolerated, No Restrictions Activities you can perform: Weight Bearing as Gerardo New Medications: Morphine Sulfate (Morphine Sulfate) 4 Mg/Ml Inj 2 MG IV PUSH Q3H PRN pain Days 5 INJECTION Discontinued Medications: Aspirin DR (Aspir-81) 81 Mg Tabdr 81 MG PO DAILY Bicalutamide (Bicalutamide) 50 Mg Tab 50 MG PO DAILY Hazardous agent; use appropriate precautions for handling & disposal. Chemotherapy Management #30 Ref 0 TAB Calcium Carbonate-Cholecalciferol (Calcium 500 +D) 500-400 Mg-Unit Tab 1 TAB PO BID Calcium Supplement Ref 0 TAB Fluticasone Nasal [place] (Flonase Nasal [place]) 50 Mcg/Act [place] 2 SPRAY EACH NARE HS PRN ALLERGIES #1 Ref 0 BOTTLE Multiple Vitamin (Multi Vitamin Daily) 1 Tab Tab 1 TAB PO DAILY Oxybutynin ER 24 HR (Oxybutynin ER 24 HR) 15 Mg Tab 15 MG PO BID Overactive Bladder Ref 0 TAB Saline Nasal ([place] Nasal [place]) 0.65% [place] 1-2 SPRAY EACH NARE DIRECTED PRN NASAL CONGESTION #1 Ref 0 BOTTLE Simvastatin (Simvastatin) 80 Mg Tab 80 MG PO HS Cholesterol Management #30 Ref 0 TAB Terazosin (Terazosin) 10 Mg Cap 10 MG PO HS #30 Ref 0 CAP Timolol Opth Drops (Timoptic Opth Drops) 0.5 % Soln 1 DROP EACH EYE DAILY Glaucoma #1 Ref 0 BOTTLE Warfarin (Warfarin) 3 Mg Tab 3 MG PO HS Blood Clot Prevention #30 Ref 0 TAB Angel Collins DO Jan 17, 2017 10:28
[2017-01-17] MEDS: MORPHINE SULFATE 4 MG/ML INJ IV PUSH PRN (10:30)
[2017-01-17 12:00] VITALS: BP 106/53; PULSE 84; RESP 18; TEMP 100.2; O2SAT 94
[2017-01-17] MEDS ORDERED: LORazepam 2 MG/ML VIAL IV PUSH SCH (12:00)
--- NOTE | 2017-02-09 14:41 | PQ ---
Physician Query Response Document PATIENT: HIPOLITO CHEUNG : 1925 ADMIT DATE: 01/05/2017 12:42 PM DISCH DATE: 01/17/2017 1:39 PM RESPONDING PROVIDER #: Rbraithw QUERY TEXT: CHF Acuity and Type Congestive Heart Failure is documented in the Medical Record. Please document the type and acuity (in cludes probable or suspected) Such as: Type: -- Systolic -- Diastolic -- Combined -- Other, please specify The patient's Clinical Indicators include: CHF ACUTE ON CHRONIC BNP 648 on admission 01/06 ECHO Left ventrical normal. Systolic function low normal ej Fx 50%. Possible moderate basal inferior and b maximus posterior hypokinesis left and right atrium mildly dilated aortic, mitral and tricuspid valve regurgitation. CXR with central vascular congestion Query created by: Oly Briggs on 01/13/2017 12:18 PM RESPONSE TEXT: Acute systolic chf exacerbation during the admission. Electronically signed by: Bradley Jones MD 02/09/2017 2:37 PM
== END 2017-01-17 13:39 | disposition hospice, inpatient (51) | DRG 292 ==
LOC: NEPE 10:05 → OBSVTOIN 12:42 → NEDA 12:42 → NEPFCDU 15:36 → N04A 01-06 18:04
PROVIDERS: ADMIT Hospitalist; ATTEND Hospitalist
PROC: 0W993ZX Drainage of Right Pleural Cavity, Percutaneous Approach, Diagnostic (ICD-10-PCS; principal; 2017-01-12)
DX: I13.0 Hypertensive heart and chronic kidney disease with heart failure and stage 1 through stage 4 chronic kidney disease, or unspecified chronic kidney disease (principal); N17.9 Acute kidney failure, unspecified; E87.0 Hyperosmolality and hypernatremia; J90 Pleural effusion, not elsewhere classified; E86.0 Dehydration; R00.1 Bradycardia, unspecified; I48.91 Unspecified atrial fibrillation; I08.3 Combined rheumatic disorders of mitral, aortic and tricuspid valves; D64.9 Anemia, unspecified; E78.5 Hyperlipidemia, unspecified; S46.011A Strain of muscle(s) and tendon(s) of the rotator cuff of right shoulder, initial encounter; I47.1 Supraventricular tachycardia; N18.3 Chronic kidney disease, stage 3 (moderate); I50.9 Heart failure, unspecified; N40.0 Benign prostatic hyperplasia without lower urinary tract symptoms; R09.02 Hypoxemia; W19.XXXA Unspecified fall, initial encounter; K43.9 Ventral hernia without obstruction or gangrene; R41.89 Other symptoms and signs involving cognitive functions and awareness; M19.90 Unspecified osteoarthritis, unspecified site; Z51.5 Encounter for palliative care; Z66 Do not resuscitate; Z79.01 Long term (current) use of anticoagulants; Z85.46 Personal history of malignant neoplasm of prostate; Z85.72 Personal history of non-Hodgkin lymphomas; Z90.49 Acquired absence of other specified parts of digestive tract; Z95.1 Presence of aortocoronary bypass graft; Z96.653 Presence of artificial knee joint, bilateral
CPT/HCPCS: 32555; 36600; 71010; 71020; 71250; 73030; 73200; 73220; 74000; 76937; 80048; 80053; 80076; 80162; 81001; 82550; 82805; 82945; 83615; 83735; 83880; 83986; 84100; 84157; 84439; 84443; 84484; 85007; 85025; 85027; 85610; 85730; 86850; 86900; 86901; 86902; 86920; 86922; 87070; 87205; 88112; 88305; 89051; 93005; 93225; 93226; 93306; 93970; 93971; 94640; 94664; 96374; A9579; C1729; G8987-GP; G8988-GP; J1160; J1650; J1940; J1956; J2060; J2270; J2543; J3480; J7030